=== PATIENT | female | born 1985 | race Caucasian/White ===

== ENCOUNTER 2018-06-13 17:50 | Day surgery (SDC) | payer MEDICARE, MEDICAID ==
--- NOTE | 2018-06-13 19:32 | ULT ---
US Pelvic Transvag W Doppler History: [26 weeks . History of bleeding.] Comparison: None. Findings: Real-time grayscale, color, and spectral analysis of the pelvis was performed transabdomina l and transvaginal approach. There is no intrauterine . The uterus is retroverted. Images thickness is 5 mm. The uterus measures 8.5 x 5.2 x 6 cm without mass. The periuterine vessels are enlarged. Right ovary measures 2.5 x 3.2 x 1.9 cm with adequate vascular flow. Left ovary measures 1.1 x 2.1 x 1.3 cm with adequate vascular flow. Impression: Normal endometrium without intrauterine . Enlarged uterine and adnexal vessels. Both ovaries are normal.
[2018-06-13 19:36] LABS: #Basophils 0.1 thou/uL (0.0-0.2); #Eosinphils 0.1 thou/uL (0.0-0.7); #Lymphocytes 2.8 thou/uL (1.20-3.40); #Monocytes 0.4 thou/uL (0.11-0.59); #Neutrophils 4.4 thou/uL (1.40-6.50); %Basophils 1.4 % (0.0-1.0); %Eosinophils 1.5 % (0.0-10.0); %Lymphocytes 35.7 % (21.0-51.0); %Monocytes 5.5 % (0.0-10.0); Hemoglobin 13.9 g/dL (12.0-16.0); Mean Corpuscular HGB CONC 34.6 g/dL (32.0-36.0); Mean Corpuscular Hemoglobin 31.1 pg (27.0-31.0); Mean Corpuscular Volume 89.9 fL (78.0-98.0); Mean Platelet Volume 8.4 fL (7.4-10.4); Platelet Count 302 thou/uL (130-400); RBC Distribution Width 11.3 % (11.5-14.5); Red Blood Cell (RBC) Count 4.47 mill/uL (4.20-5.40); White Blood Cell (WBC) Count 7.8 thou/uL (4.8-10.8)
--- NOTE | 2018-06-14 05:09 | SS ---
DATE OF ADMISSION: 06/13/2018 DATE OF DISCHARGE: 06/13/2018 REGULAR PHYSICIAN: Adis Ortega MD at [facility]. EVALUATING PHYSICIAN: Filippo Blue MD. CHIEF COMPLAINT: Vaginal bleeding. HISTORY OF PRESENT ILLNESS: Ms. Reveles is a 32-year-old white reportedly G3, P1, AB1 with a reported estimated date of confinement of 09/07/2018, who presents complaining of vaginal bleeding that started this morning. She was brought to [facility] by EMS. She reports that she has had care with Dr. Nick Ortega and was seen approximately a week ago and was told all was well with her . She denies ruptured membranes or uterine contractions. PAST OBSTETRICAL HISTORY: Includes one vaginal delivery at term and one miscarriage requiring D and C. PAST MEDICAL HISTORY: Includes seizure disorder. She states her last seizure was several months ago. PAST SURGICAL HISTORY: Tonsillectomy, D and C, history of tubal ligation, and an unknown kidney surgery. CURRENT MEDICATIONS: 1. vitamins. 2. Iron. 3. Keppra and Tegretol, both the dosages unknown. 4. Vitamin D and calcium. ALLERGIES: GEODON AND BUPAP. SOCIAL HISTORY: She smokes less than a pack a day. She denies drinking or illicit drug use. FAMILY HISTORY: Unremarkable. REVIEW OF SYSTEMS: Denies nausea, vomiting, fever, chills, ruptured membranes. PHYSICAL EXAMINATION: VITAL SIGNS: In triage, vital signs are stable. She is afebrile. GENERAL: She is anxious, but appears to answer questions appropriately. ABDOMEN: Soft and nontender. There is no palpable gravid uterus on physical examination. LABORATORY DATA: Ultrasound at the bedside in Labor and delivery shows no evidence of a uterus. Ultrasound is ordered stat. This shows no evidence of with an 8-week size uterus and a normal endometrium. There appeared to be no adnexal masses. LABORATORY DATA: White count 7.8, hemoglobin and hematocrit 13.9 and 40.2, and a platelet count of 302,000. Serum beta HCG is less than 1.20. ASSESSMENT: No evidence of at this time. PLAN: The patient will be discharged home. I am uncertain as to the discrepancy in this patient's story. She is very upset and states that she will go to [facility] this evening to confer with Dr. Ortega. Her USG and [facility] report are given to her upon her discharge. Job ID: [id number] [facility]
== END 2018-06-13 20:10 | disposition home or self-care (01) ==
LOC: L&D/OP 17:50
PROVIDERS: ATTEND Obstetrics & Gynecology
DX: O99.89 Other specified diseases and conditions complicating pregnancy, childbirth and the puerperium (principal); N89.8 Other specified noninflammatory disorders of vagina; O99.352 Diseases of the nervous system complicating pregnancy, second trimester; G40.909 Epilepsy, unspecified, not intractable, without status epilepticus; F17.210 Nicotine dependence, cigarettes, uncomplicated; Z3A.26 26 weeks gestation of pregnancy; Z79.899 Other long term (current) drug therapy; Z88.8 Allergy status to other drugs, medicaments and biological substances
CPT/HCPCS: 36415; 76856; 84702; 85025; 99283

== ENCOUNTER 2018-06-22 19:16 | Emergency (ER) | payer MEDICARE, MEDICAID ==
[2018-06-22] MEDS ORDERED: Ketorolac Tromethamine 30 MG/ML VIAL ONE (19:52)
--- NOTE | 2018-06-22 20:29 | RAD ---
PORTABLE CHEST: 06/22/18 HISTORY: Left shoulder pain. Lungs are clear. Heart and mediastinum unremarkable. Osseous structures appear intact. IMPRESSION: No acute findings. POS: AGW
--- NOTE | 2018-06-22 20:29 | RAD ---
LEFT SHOULDER: 06/22/18 Three views. HISTORY: Shoulder pain. No evidence of fracture or dislocation. No osseous abnormality seen. IMPRESSION: No acute findings. POS: AGW
== END 2018-06-22 20:41 | disposition home or self-care (01) ==
LOC: ERS 19:16
DX: S40.012A Contusion of left shoulder, initial encounter (principal); G40.909 Epilepsy, unspecified, not intractable, without status epilepticus; F31.9 Bipolar disorder, unspecified; F17.210 Nicotine dependence, cigarettes, uncomplicated; V43.62XA Car passenger injured in collision with other type car in traffic accident, initial encounter
CPT/HCPCS: 71045; 96372; J1885

== ENCOUNTER 2019-07-28 06:24 | Emergency (ER) | payer MEDICARE, OTHER ==
[2019-07-28 06:52] LABS: Bacteria/HPF 1+ HPF (None Seen); Bilirubin Negative (Negative); Blood, Urine Negative (Negative); Clarity Clear (Clear); Glucose, Urine (Dipstick) Normal (Negative); Leukocyte 25 Leu/uL (Negative); Mucous/LPF Rare LPF (<2+); Nitrite 2+ (Negative); Protein, Urine (Dipstick) Negative (Neg-Trace); RBC/HPF 0-3 HPF (0-3); Urobilinogen Normal mg/dL (Less than 2)
[2019-07-28 06:56] LABS: Amphetamine Detected (NotDetected); Barbiturates Screen Not Detected (NotDetected); Benzodiazepine Screen Not Detected (NotDetected); Cocaine Metabolite Screen Not Detected (NotDetected); Medtox Reader # READER 1; Methadone Not Detected (NotDetected); Methamphetamine Detected (NotDetected); Opiate Screen Not Detected (NotDetected); Oxycodone Screen Not Detected (NotDetected); Phencyclidine (PCP) Not Detected (NotDetected); THC/Cannabinoid Screen Not Detected (NotDetected); Tricyclic Screen Not Detected (NotDetected)
[2019-07-28 06:57] LABS: Medtox Control Line Valid? VALID (VALID)
[2019-07-28 07:15] LABS: BHCG - Serum Negative (NEGATIVE); Pregs Control Background? CLEAR/WHITE (CLR/WHITE); Pregs Control Bar Appear? YES (CONTROL BAR)
[2019-07-28 07:27] LABS: Acetaminophen Less than 6.0 mcg/mL (10.0-30.0); Alcohol Less than 10 mg/dL (Less than 10); Salicylate Less than 8.0 mg/dL (15.0-30.0)
[2019-07-28 07:28] LABS: ALT (SGPT) 9 U/L (8-55); AST (SGOT) 16 U/L (5-34); Albumin 4.2 g/dL (3.5-5.0); Alkaline Phosphatase 64 U/L (40-110); Anion Gap 11 mmol/L (10-20); BUN (Urea Nitrogen) 8 mg/dL (7.0-18.7); Bilirubin, Total 0.4 mg/dL (0.2-1.2); Calc. Creatinine Clearance 0 mL/min (70-130); Calcium 8.5 mg/dL (7.8-10.44); Carbon Dioxide 24 mmol/L (22-29); Chloride 104 mmol/L (98-107); Estimated GFR-MDRD 83; Globulin 2.9 g/dL (2.4-3.5); Glucose 84 mg/dL (70-105); Protein, Total 7.1 g/dL (6.0-8.3); Sodium 136 mmol/L (136-145)
[2019-07-28 07:55] LABS: #Basophils 0.1 thou/uL (0.0-0.2); #Lymphocytes 2.3 thou/uL (1.20-3.40); #Monocytes 1.1 thou/uL (0.11-0.59); #Neutrophils 9.1 thou/uL (1.40-6.50); %Basophils 0.4 % (0.0-1.0); %Eosinophils 0.2 % (0.0-10.0); %Lymphocytes 18.5 % (21.0-51.0); %Monocytes 8.7 % (0.0-10.0); %Neutrophils 72.1 % (42.0-75.0); Hemoglobin 13.5 g/dL (12.0-16.0); Mean Corpuscular HGB CONC 34.6 g/dL (32.0-36.0); Mean Corpuscular Hemoglobin 31.8 pg (27.0-31.0); Mean Corpuscular Volume 92.1 fL (78.0-98.0); Mean Platelet Volume 9.1 fL (7.4-10.4); Platelet Count 248 thou/uL (130-400); RBC Distribution Width 11.6 % (11.5-14.5); Red Blood Cell (RBC) Count 4.23 mill/uL (4.20-5.40); White Blood Cell (WBC) Count 12.6 thou/uL (4.8-10.8)
[2019-07-28] MEDS ORDERED: Potassium Chloride 20 MEQ TAB ONE (08:28)
[2019-07-28] MEDS ORDERED: Nitrofurantoin Macrocrystal 50 MG CAP PO SCH (08:45)
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
[2019-07-28] MEDS ORDERED: hydrOXYzine 25 MG TAB ONE (14:33)
[2019-07-28] MEDS ORDERED: Ibuprofen 200 MG TAB ONE (14:33)
[2019-07-28] MEDS ORDERED: Ziprasidone 20 MG VIAL ONE (14:44)
[2019-07-28] MEDS ORDERED: Lorazepam 2 MG/ML VIAL ONE (14:44)
== END 2019-07-28 19:50 ==
LOC: ERS 06:24
DX: T42.4X2A Poisoning by benzodiazepines, intentional self-harm, initial encounter (principal); E87.6 Hypokalemia; F29 Unspecified psychosis not due to a substance or known physiological condition; N39.0 Urinary tract infection, site not specified; G40.909 Epilepsy, unspecified, not intractable, without status epilepticus; F31.9 Bipolar disorder, unspecified; F43.10 Post-traumatic stress disorder, unspecified; F17.210 Nicotine dependence, cigarettes, uncomplicated; Z79.899 Other long term (current) drug therapy
CPT/HCPCS: 36415; 70450; 72125; 80053; 80306; 80307; 81003; 81015; 84443; 84703; 85025; 87077; 87086; 87186; 93005; 96372; J2060; J3486

== ENCOUNTER 2020-04-02 15:35 | Outpatient (CLI) | payer MEDICARE, MEDICAID ==
[2020-04-02 18:56] LABS: BHCG - Serum Negative (NEGATIVE); Pregs Control Background? CLEAR/WHITE (CLR/WHITE); Pregs Control Bar Appear? YES (CONTROL BAR)
[2020-04-03 01:58] LABS: SARS-CoV-2 PCR by NAA Not Detected (NotDetected)
== END 2020-04-02 15:36 | disposition home or self-care (01) ==
LOC: LABBT 15:35
PROVIDERS: ATTEND Student in an Organized Health Care Education/Training Program
DX: Z01.812 Encounter for preprocedural laboratory examination (principal); Z20.822 Contact with and (suspected) exposure to COVID-19; S02.2XXA Fracture of nasal bones, initial encounter for closed fracture; R09.81 Nasal congestion; J34.89 Other specified disorders of nose and nasal sinuses
CPT/HCPCS: 84703; 85014; U0003; U0005; 87635

== ENCOUNTER 2020-04-07 06:17 | Day surgery (SDC) | payer MEDICARE, MEDICAID ==
[2020-04-06 12:07] VITALS: BMI 28.1
[2020-04-07] MEDS ORDERED: AFRIN NASAL MIST 15 ML BOT ONE ×2 (06:40→08:22)
[2020-04-07] MEDS ORDERED: Acetaminophen 500 MG TAB ONE (07:17)
[2020-04-07] MEDS ORDERED: Propofol 1,000 MG/100 ML VIAL IV ONE (07:20)
[2020-04-07] MEDS ORDERED: Midazolam HCl 2 mg/2 ml Vial ONE (07:21)
[2020-04-07] MEDS ORDERED: Methylene Blue 50 MG/10 ML AMPUL ONE (08:22)
[2020-04-07] MEDS ORDERED: Bacitracin Zinc Ointment 30 gm TUBE ONE (08:22)
[2020-04-07] MEDS ORDERED: XYLOCAINE 2%-EPI 1:100,000 20 ML VIAL ONE (08:22)
[2020-04-07] MEDS ORDERED: Fentanyl 250 MCG/5 ML VIAL ONE (08:24)
[2020-04-07] MEDS ORDERED: Morphine 4 MG/ML VIAL ONE (08:24)
[2020-04-07] MEDS ORDERED: PHENYLEPHRINE-NS 100 MCG/ML 10 ML SYRINGE ONE (09:48)
[2020-04-07] MEDS ORDERED: ePHEDrine 50 MG/ML VIAL ONE (09:48)
[2020-04-07] MEDS ORDERED: Ondansetron PF 4 MG/2 ML Vial ONE (09:48)
[2020-04-07] MEDS ORDERED: PROPOFOL 200 MG/20 ML VIAL ONE (09:48)
[2020-04-07] MEDS ORDERED: Dexamethasone 20 MG/5 ML VIAL ONE (09:48)
[2020-04-07] MEDS ORDERED: Lidocaine 1% PF 5 ML VIAL ONE (09:48)
[2020-04-07] MEDS ORDERED: Rocuronium Bromide 10 MG/ML (10ML VIAL) ONE (09:48)
[2020-04-07] MEDS ORDERED: Ketorolac Tromethamine 30 MG/ML VIAL ONE (09:48)
--- NOTE | 2020-04-08 14:54 | OP ---
DATE OF PROCEDURE: 04/07/2020 PREOPERATIVE DIAGNOSES: Caudal septal deflection to the right deviated septum, turbinate hypertrophy. POSTOPERATIVE DIAGNOSIS: Caudal septal deflection to the right deviated septum, turbinate hypertrophy. PROCEDURE PERFORMED: Open septorhinoplasty and submucous reduction of inferior turbinates. PERMIT: Procedures, benefits, and risks including those of bleeding, infection, injury, nasal deformity, allergic reaction, scarring, nasal congestion and difficulty breathing necessitating revision and repair, and alternatives were reviewed with the patient, who expressed understanding of the information. A consent form was signed and witnessed and a paper copy of the consent form is available for review in the paper chart. INDICATIONS: This is a 34-year-old female patient presenting to the clinic with history of a seizure disorder and anterior caudal deflection consistent with repeated nasal trauma in the past and difficulty breathing, desiring surgical correction in order to alleviate congestion, difficulty breathing and an occasional in the nose. ASSISTANTS: None. FINDINGS: Significant anterior caudal septal deflection and posterior left and posterior superior right septal deviation and turbinate hypertrophy. DESCRIPTION OF PROCEDURE: The patient was identified in the preoperative area and brought back to the operating room. Anesthesia was placed and all appropriate lines and leads were placed. A complete time-out was performed. Anesthesia proceeded with endotracheal intubation of the patient and eye protection was placed and then the site was prepped and draped in a sterile manner. 1% lidocaine with 1:100,000 epinephrine was used to infiltrate the nasal septum, the columella, the lateral crura, the lower lateral cartilage and the dorsal aspect of the nose. The nasal columella was also injected with 1% lidocaine with 1:100,000 epinephrine. The endoscope was used to evaluate the nasal cavity and significant caudal septal deflection to the right was seen as well as posterior right and left septal deviation and turbinate hypertrophy. Alanis speculum was used to visualize the nasal cavity anteriorly and at this point, a 15 blade was used to make a hemitransfixion incision on the left. The incision was carried down to the septal cartilage. A [place] elevator and a [place] were used to identify the submucoperichondrial plane, which was then elevated and a suction elevator was used to fully elevate the mucoperichondrial flap. A 0-degree rigid scope and a suction [place] was used to continually elevate the flap posteriorly and about a 2-cm posterior incision was made through the cartilage on the left side with help of a 15 blade scalpel and a [place] used to identify the submucosal plane and the contralateral side was also elevated with a suction [place] and a 0-degree rigid endoscope. At this point, significant deviation was seen after the elevation of mucoperichondrial flap and an open approach was made. An inverted-V incision was outlined at the waist of the columella at the narrowest portion. An 11 blade was then used to incise the skin and subcutaneous tissue with care not to score the medial footplate of the lower lateral cartilages or the medial crura. The incision was extended laterally into the marginal incisions bilaterally. The soft tissue envelope was then elevated off the cartilage utilizing a combination of sharp dissection with curved Iris scissors and [place] scissors and blunt dissection as well as using Q-Tips for sweeping motions to expose the smooth cartilaginous surfaces. Dissection continued over the domes and superiorly over the nasal dorsum exposing the upper lateral cartilages and the entire nasal bone superiorly. Elevation at this point revealed significant deviated septum that was a Z-shaped deviation with a complete fracture of the cartilage, which was mildly thickened and dense scar tissue in the fractured area. At this point, the lower lateral cartilages and interdomal ligament was marked for future reapproximation, and the interdomal ligament was divided and the anterior septal angle was identified with the use of Q-Tips, blunt dissection and sharp dissection. The complete caudal septum was exposed and significant scar tissue was carefully elevated off the septum and a mucoperichondrial flap was continually elevated posteriorly. At this point, a significant deviation to the right was seen inferiorly and superiorly deviation to the left. A small cartilaginous section of the anterior septum was shaved and the entire septum was straightened with Brown-Adson's and seen that the cartilaginous portions could be perfectly straight in the midline. At this point, attention was turned to the hemitransfixion incision and the cartilaginous incision and a swivel knife was used to harvest a straight and strong section quadrangular cartilage from the septum and removed and placed in saline. After this was rinsed in saline, the cartilage, a small roughly 1.5 cm section was shaped to the appropriate thickness and placed next to the anterior caudal deviation of the septum and to be supportive and 5-0 PDS suture was used to secure the cartilage to the anterior septum with 3 sutures on anterior superior and anterior inferior and a central incision more posteriorly was placed. At this point, the significant deviation and Z-shaped deviation was found to be corrected and the septum was found to be strong in nature and looking more posterior, there was a small bulbous nature of the cartilage of the septum, which was shaved. After this was completed, the anterior caudal deviation and obstruction was found to be alleviated. After this was performed, there was some mild deviation of the anterior tip structures and a small deviated portion of cartilage was shaved. However, the lower lateral cartilage, the medial crura, and the cartilage of the dome were left intact and 5-0 PDS suture was used to reapproximate domes at the level of the interdomal ligament that was previously marked. After this was completed, sutures were placed in the medial crura as well as the lower lateral cartilages to correct the deviation and to anchor it to the repaired anterior septum. After this was performed, the soft tissue envelope was replaced over the cartilage and found that the deviation was corrected and attention was turned to the hemitransfixion on the left and the posterior deviation of the septum were removed with double action scissors as well as the [place]. At this point, 5-0 chromic sutures were used to reapproximate the inverted-V and columellar incisions as well as the marginal incisions and after this was reapproximated, a 4-0 chromic suture on a Jose Guadalupe needle was used to do a quilting stitch on the septum in order to reapproximate the mucoperichondrial flaps. At this point, attention was turned to the submucosal reduction of inferior turbinates. A small anterior inferior incision was made bilaterally and the turbinate blade of the microdebrider was used to elevate the mucosal plane over the erectile tissue and then from anterior to posterior and then inferior to superior and then the turbinate blade was used to remove the erectile tissue on the left side and then the same procedure was performed on the right side, where the elevation of the mucosa was performed in an anterior to posterior fashion and then inferior to superior and then significant erectile tissue was removed with the turbinate blade. There was no bleeding seen. However, the turbinates were significantly reduced and the nasal obstruction was alleviated. Attention was turned to the septum and the rhinoplasty and palpation of the dome, the nasal dorsum and anterior septum, palpation confirmed that this area was strengthened. Significant strengthening was an effort of the surgery in order to alleviate the deviation and then strengthen those areas that has been leaking from previous fractures. After this was performed, [place] splints were placed bilaterally and anchored with anterior 2-0 silk suture. There was no bleeding seen and the patient was turned over to Anesthesia for emergence. There were no complications. Job ID: [id number]
== END 2020-04-07 13:40 | disposition home or self-care (01) ==
LOC: SDC 06:17
PROVIDERS: ATTEND Student in an Organized Health Care Education/Training Program
PROC: 09SM0ZZ Reposition Nasal Septum, Open Approach (ICD-10-PCS; principal; 2020-04-07)
PROC: 09BM0ZZ Excision of Nasal Septum, Open Approach (ICD-10-PCS; 2020-04-07)
PROC: 09TL0ZZ Resection of Nasal Turbinate, Open Approach (ICD-10-PCS; 2020-04-07)
DX: J34.2 Deviated nasal septum (principal); J34.3 Hypertrophy of nasal turbinates; J34.89 Other specified disorders of nose and nasal sinuses; S02.2XXA Fracture of nasal bones, initial encounter for closed fracture; H71.91 Unspecified cholesteatoma, right ear; H90.11 Conductive hearing loss, unilateral, right ear, with unrestricted hearing on the contralateral side; G40.909 Epilepsy, unspecified, not intractable, without status epilepticus; G43.909 Migraine, unspecified, not intractable, without status migrainosus; F17.210 Nicotine dependence, cigarettes, uncomplicated; F12.11 Cannabis abuse, in remission; F14.11 Cocaine abuse, in remission; F31.9 Bipolar disorder, unspecified; F43.10 Post-traumatic stress disorder, unspecified; Z62.810 Personal history of physical and sexual abuse in childhood; Z79.899 Other long term (current) drug therapy; Z88.8 Allergy status to other drugs, medicaments and biological substances
CPT/HCPCS: J0690; J1100; J1885; J2250; J2270; J2405; J2704; J3010; J3490; Q9968

== ENCOUNTER 2020-07-30 13:14 | Emergency (ER) | payer MEDICARE, MEDICAID ==
[2020-07-30] MEDS ORDERED: Ondansetron ODT 4 MG TAB ONE (14:49)
[2020-07-30] MEDS ORDERED: Morphine 4 MG/ML VIAL ONE (14:49)
[2020-07-30] MEDS ORDERED: Lidocaine 1% (PF) 30 ML VIAL ONE (14:49)
[2020-07-30] MEDS ORDERED: Lidocaine 4% Cream 5 GM TUBE w/ Tegaderm ONE (15:08)
[2020-07-30] MEDS ORDERED: Lidocaine 1% w/Epinephrine 1:100K 20 ML VIAL ONE (15:10)
[2020-07-30] MEDS ORDERED: Boostrix 0.5 ML (Tdap) VIAL ONE (15:11)
== END 2020-07-30 17:10 | disposition home or self-care (01) ==
LOC: ERS 13:14
DX: L02.411 Cutaneous abscess of right axilla (principal); G40.909 Epilepsy, unspecified, not intractable, without status epilepticus; F17.210 Nicotine dependence, cigarettes, uncomplicated; Z79.899 Other long term (current) drug therapy
CPT/HCPCS: 10060; 90471; 90715; 96372; J2001; J2270; Q0162

== ENCOUNTER 2020-10-17 13:16 | Emergency (ER) | payer MEDICARE, MEDICAID ==
[~2020-10-17 13:16] MED LIST: Iopamidol-370 76% 500 ML 1 ML ONE
[2020-10-17 13:57] LABS: #Basophils 0.1 thou/uL (0.0-0.2); #Lymphocytes 2.7 thou/uL (1.20-3.40); #Monocytes 0.7 thou/uL (0.11-0.59); #Neutrophils 7.4 thou/uL (1.40-6.50); %Basophils 0.7 % (0.0-1.0); %Eosinophils 0.4 % (0.0-10.0); %Lymphocytes 24.4 % (21.0-51.0); %Monocytes 6.6 % (0.0-10.0); %Neutrophils 67.9 % (42.0-75.0); Hemoglobin 14.4 g/dL (12.0-16.0); Mean Corpuscular HGB CONC 34.6 g/dL (32.0-36.0); Mean Corpuscular Hemoglobin 30.9 pg (27.0-31.0); Mean Corpuscular Volume 89.3 fL (78.0-98.0); Mean Platelet Volume 8.9 fL (7.4-10.4); Platelet Count 292 thou/uL (130-400); RBC Distribution Width 11.5 % (11.5-14.5); Red Blood Cell (RBC) Count 4.65 mill/uL (4.20-5.40); White Blood Cell (WBC) Count 10.9 thou/uL (4.8-10.8)
[2020-10-17 14:07] LABS: BHCG - Serum Negative (NEGATIVE); Pregs Control Background? CLEAR/WHITE (CLR/WHITE); Pregs Control Bar Appear? YES (CONTROL BAR)
[2020-10-17 14:15] LABS: ALT (SGPT) 11 U/L (8-55); AST (SGOT) 17 U/L (5-34); Albumin 4.4 g/dL (3.5-5.0); Alkaline Phosphatase 79 U/L (40-110); Anion Gap 13 mmol/L (10-20); BUN (Urea Nitrogen) 11 mg/dL (7.0-18.7); Bilirubin, Total 0.7 mg/dL (0.2-1.2); Calc. Creatinine Clearance 0 mL/min (70-130); Calcium 9.3 mg/dL (7.8-10.44); Carbon Dioxide 21 mmol/L (22-29); Chloride 106 mmol/L (98-107); Glucose 115 mg/dL (70-105); Potassium 4.1 mmol/L (3.5-5.1); Protein, Total 8.4 g/dL (6.0-8.3); Sodium 136 mmol/L (136-145)
[2020-10-18 00:25] LABS: SARS-CoV-2 PCR by NAA Not Detected (NotDetected)
== END 2020-10-17 16:20 | disposition home or self-care (01) ==
LOC: ERS 13:16
DX: R06.02 Shortness of breath (principal); R05 Cough; R79.1 Abnormal coagulation profile; R00.0 Tachycardia, unspecified; F17.210 Nicotine dependence, cigarettes, uncomplicated; G40.909 Epilepsy, unspecified, not intractable, without status epilepticus; Z20.822 Contact with and (suspected) exposure to COVID-19; Z79.899 Other long term (current) drug therapy
CPT/HCPCS: 71045; 71275; 80053; 84484; 84703; 85025; 85379; U0003; U0005; Q9967

== ENCOUNTER 2021-03-06 17:54 | Emergency (ER) | payer OTHER, MEDICARE, MEDICAID | END 2021-03-06 19:01 | disposition left against medical advice (07) | LOC: ERS 17:54 | DX: S09.90XA Unspecified injury of head, initial encounter (principal); G40.909 Epilepsy, unspecified, not intractable, without status epilepticus; M54.2 Cervicalgia; W01.0XXA Fall on same level from slipping, tripping and stumbling without subsequent striking against object, initial encounter; F17.210 Nicotine dependence, cigarettes, uncomplicated | CPT/HCPCS: 36416; 93005; 99284 ==

== ENCOUNTER 2021-05-27 10:48 | Inpatient (IN) | payer MEDICARE, MEDICAID ==
[2021-05-27] MEDS ORDERED: Propofol 1,000 MG/100 ML VIAL IV ONE (10:52)
[2021-05-27] MEDS ORDERED: ceFAZolin (BATCH) 2 GM/100 ML BAG ONE (10:56)
[2021-05-27] MEDS ORDERED: Boostrix 0.5 ML (Tdap) VIAL ONE (10:56)
[2021-05-27 11:00] LABS: #Basophils 0.1 thou/uL (0.0-0.2); #Eosinphils 0.1 thou/uL (0.0-0.7); #Lymphocytes 3.5 thou/uL (1.20-3.40); #Monocytes 0.7 thou/uL (0.11-0.59); #Neutrophils 6.6 thou/uL (1.40-6.50); %Basophils 0.7 % (0.0-1.0); %Eosinophils 0.8 % (0.0-10.0); %Lymphocytes 31.9 % (21.0-51.0); %Monocytes 6.4 % (0.0-10.0); %Neutrophils 60.1 % (42.0-75.0); Hemoglobin 13.4 g/dL (12.0-16.0); Mean Corpuscular HGB CONC 33.9 g/dL (32.0-36.0); Mean Corpuscular Hemoglobin 31.5 pg (27.0-31.0); Mean Corpuscular Volume 92.8 fL (78.0-98.0); Mean Platelet Volume 7.5 fL (7.4-10.4); Platelet Count 307 thou/uL (130-400); Red Blood Cell (RBC) Count 4.26 mill/uL (4.20-5.40)
[2021-05-27] MEDS ORDERED: Vecuronium 10 MG VIAL ONE (11:03)
[2021-05-27] MEDS ORDERED: Fentanyl 100 MCG/2 ML VIAL ONE (11:04)
[2021-05-27 11:09] LABS: INR-International Normal Ratio 1.2; PTT 26.8 sec (22.9-36.1); Prothrombin Time 14.9 sec (12.0-14.7)
[2021-05-27 11:17] LABS: ALT (SGPT) 9 U/L (8-55); AST (SGOT) 10 U/L (5-34); Albumin 4.3 g/dL (3.5-5.0); Alcohol Less than 10 mg/dL (Less than 10); Alkaline Phosphatase 74 U/L (40-110); Anion Gap 13 mmol/L (10-20); BUN (Urea Nitrogen) 11 mg/dL (7.0-18.7); Bilirubin, Total 0.5 mg/dL (0.2-1.2); Calc. Creatinine Clearance 0 mL/min (70-130); Calcium 8.7 mg/dL (7.8-10.44); Carbon Dioxide 23 mmol/L (22-29); Chloride 105 mmol/L (98-107); Glucose 113 mg/dL (70-105); Potassium 3.3 mmol/L (3.5-5.1); Protein, Total 7.3 g/dL (6.0-8.3); Sodium 138 mmol/L (136-145)
[2021-05-27] MEDS ORDERED: Dextrose 5% in Water 1,000 ML IV PRN (11:24)
[2021-05-27] MEDS ORDERED: Dextrose 50% Abboject 50 ML SYRINGE SLOW IVP PRN (11:24)
[2021-05-27] MEDS ORDERED: Ondansetron PF 4 MG/2 ML Vial IVP PRN (11:24)
[2021-05-27] MEDS ORDERED: hydrALAZINE 20 MG/ML VIAL SLOW IVP PRN (11:24)
[2021-05-27] MEDS ORDERED: Ventilator Sedation Protocol 1 EACH FS SCH (11:30)
[2021-05-27 11:38] LABS: Actual Bicarbonate (HCO3a) 18.8 mEq/L (22-28); Analyzer IN Cardio ER; Base Excess (BEa) -3.4 mEq/L (-2.0 to +3.0); Calcium, Ionized (arterial) 1.01 mmol/L (1.12-1.30); Carboxyhemoglobin (COHb) 0.3 gm% (0.0-3.0); Hemoglobin (Hb) 10.7 g/dL (12.0-16.0); O2 Tension (PaO2), arterial 377.4 mmHg (80.0-100.0); Potassium - ABG Lab 3.36 mmol/L (3.70-5.30); pH, Arterial 7.49 (7.35-7.45)
[2021-05-27 11:41] LABS: ALV-art Gradient -52.525 mmHg (0-20); CO2 Tension 25.3 mmHg (35.0-45.0); Puncture Site RRA
[2021-05-27] MEDS ORDERED: DISCONTINUE PREVIOUS NARCOTIC PAIN MEDICATIONS AND BENZODIAZEPINES FS SCH (11:45)
[2021-05-27] MEDS ORDERED: Propofol BOLUS 1,000 MG/100 ML VIAL IV PRN (11:45)
[2021-05-27] MEDS ORDERED: Morphine 2 MG/ML VIAL SLOW IVP PRN (11:45)
[2021-05-27] MEDS ORDERED: Fentanyl BOLUS 250 ML IVPB PRN (11:45)
[2021-05-27] MEDS ORDERED: Lorazepam 2 MG/ML VIAL SLOW IVP PRN (11:45)
[2021-05-27 11:47] LABS: Bilirubin Negative (Negative); Blood, Urine Negative (Negative); Clarity Clear (Clear); Glucose, Urine (Dipstick) Normal (Negative); Ketone, Urine Negative (Negative); Leukocyte Negative Leu/uL (Negative); Nitrite Negative (Negative); Protein, Urine (Dipstick) Negative (Neg-Trace); Specific Gravity, Urine 1.017 (1.002-1.036); Urobilinogen Normal mg/dL (Less than 2)
[2021-05-27 11:48] LABS: Magnesium 2.2 mg/dL (1.6-2.6); Phosphorus 2.5 mg/dL (2.3-4.7)
[2021-05-27 11:58] LABS: Amphetamine Not Detected (NotDetected); Barbiturates Screen Not Detected (NotDetected); Benzodiazepine Screen Detected (NotDetected); Cocaine Metabolite Screen Not Detected (NotDetected); Methadone Not Detected (NotDetected); Methamphetamine Not Detected (NotDetected); Opiate Screen Not Detected (NotDetected); Oxycodone Screen Not Detected (NotDetected); Phencyclidine (PCP) Not Detected (NotDetected); THC/Cannabinoid Screen Not Detected (NotDetected); Tricyclic Screen Not Detected (NotDetected)
[2021-05-27] MEDS ORDERED: Calcium Chloride 13.6 MEQ in Sodium Chloride 0.9% 100 ML IVPB SCH (12:00)
[2021-05-27] MEDS: Sodium Chloride 0.9% 1,000 ML IV SCH ×2 (12:35→20:58)
[2021-05-27] MEDS: fentaNYL Citrate-0.9 % NaCl/PF 100 ML IV SCH (12:41)
[2021-05-27] MEDS ORDERED: levETIRAcetam in NS 500 MG in Premix Bag 1 BAG IVPB SCH (12:45)
[2021-05-27] MEDS ORDERED: Potassium Phosphate 30 MMOL in Sodium Chloride 0.9% 250 ML 250 ML IVPB SCH (13:00)
[2021-05-27 13:48] LABS: Lactic Acid 1.5 mmol/L (0.5-2.2)
[2021-05-27] MEDS: Clindamycin/D5W 900 MG in Premix Bag 1 BAG IVPB SCH ×2 (14:06→22:58)
[2021-05-27] MEDS ORDERED: Iopamidol-370 76% 500 ML 1 ML ONE (14:39)
[2021-05-27] MEDS: Propofol 1,000 MG/100 ML VIAL IV PRN ×2 (17:41→22:58)
[2021-05-27] MEDS: levETIRAcetam in NS 500 MG in Premix Bag 1 BAG IVPB SCH (21:00)
[2021-05-27] MEDS: Famotidine/PF 20 mg/2ml Vial SLOW IVP SCH (21:01)
[2021-05-28 04:10] LABS: SARS-CoV-2 NAA Rapid Test Not Detected (NotDetected)
[2021-05-28 04:33] LABS: #Eosinphils 0.1 thou/uL (0.0-0.7); #Lymphocytes 2.4 thou/uL (1.20-3.40); #Monocytes 0.5 thou/uL (0.11-0.59); %Basophils 0.4 % (0.0-1.0); %Eosinophils 1.5 % (0.0-10.0); %Lymphocytes 29.5 % (21.0-51.0); %Monocytes 6.2 % (0.0-10.0); %Neutrophils 62.5 % (42.0-75.0); Mean Corpuscular HGB CONC 34.1 g/dL (32.0-36.0); Mean Corpuscular Hemoglobin 32.4 pg (27.0-31.0); Mean Corpuscular Volume 94.9 fL (78.0-98.0); Mean Platelet Volume 8.1 fL (7.4-10.4); Platelet Count 202 thou/uL (130-400); RBC Distribution Width 11.9 % (11.5-14.5); Red Blood Cell (RBC) Count 3.07 mill/uL (4.20-5.40)
[2021-05-28] MEDS: Propofol 1,000 MG/100 ML VIAL IV PRN (04:35)
[2021-05-28 04:47] LABS: Anion Gap 9 mmol/L (10-20); BUN (Urea Nitrogen) 6 mg/dL (7.0-18.7); Calc. Creatinine Clearance 141 mL/min (70-130); Calcium 7.6 mg/dL (7.8-10.44); Carbon Dioxide 25 mmol/L (22-29); Chloride 106 mmol/L (98-107); Glucose 72 mg/dL (70-105); Magnesium 1.9 mg/dL (1.6-2.6); Phosphorus 3.9 mg/dL (2.3-4.7); Potassium 3.4 mmol/L (3.5-5.1); Sodium 137 mmol/L (136-145)
[2021-05-28] MEDS: fentaNYL Citrate-0.9 % NaCl/PF 100 ML IV SCH (05:18)
[2021-05-28] MEDS: Sodium Chloride 0.9% 1,000 ML IV SCH ×3 (05:55→20:29)
[2021-05-28] MEDS: Clindamycin/D5W 900 MG in Premix Bag 1 BAG IVPB SCH ×3 (05:56→22:02)
[2021-05-28] MEDS ORDERED: Vecuronium 10 MG VIAL ONE (07:08)
[2021-05-28] MEDS ORDERED: Xylocaine 1% w/ Epi 1:100K 10 ML VIAL ONE (07:09)
[2021-05-28] MEDS ORDERED: Midazolam HCl 2 mg/2 ml Vial ONE (07:09)
[2021-05-28] MEDS ORDERED: Midazolam HCl 2 mg/2 ml Vial IVP PRN (07:11)
[2021-05-28] MEDS ORDERED: Fentanyl 100 MCG/2 ML VIAL SLOW IVP PRN (07:12)
[2021-05-28] MEDS ORDERED: Vecuronium 10 MG VIAL IV SCH ×2 (07:15)
[2021-05-28] MEDS ORDERED: Lidocaine 1%/Epinephrine 1:100K 10 ML VIAL IJ SCH (07:15)
[2021-05-28] MEDS ORDERED: Potassium Chloride 40 MEQ in Premix Bag 1 BAG IVPB SCH (07:30)
[2021-05-28 07:53] LABS: Actual Bicarbonate (HCO3a) 23.9 mEq/L (22-28); Base Excess (BEa) -0.1 mEq/L (-2.0 to +3.0); CO2 Tension 36.8 mmHg (35.0-45.0); Calcium, Ionized (arterial) 1.05 mmol/L (1.12-1.30); Carboxyhemoglobin (COHb) 0.3 gm% (0.0-3.0); Hemoglobin (Hb) 10.3 g/dL (12.0-16.0); O2 Tension (PaO2), arterial 112.1 mmHg (80.0-100.0); Potassium - ABG Lab 3.15 mmol/L (3.70-5.30); pH, Arterial 7.43 (7.35-7.45)
[2021-05-28 08:06] LABS: Puncture Site RRA
[2021-05-28] MEDS: levETIRAcetam in NS 500 MG in Premix Bag 1 BAG IVPB SCH ×2 (08:41→21:55)
[2021-05-28] MEDS: Famotidine/PF 20 mg/2ml Vial SLOW IVP SCH ×2 (08:41→21:57)
[2021-05-28] MEDS ORDERED: Calcium Chloride 13.6 MEQ in Sodium Chloride 0.9% 100 ML IVPB SCH (08:45)
[2021-05-28] MEDS ORDERED: Sodium Chloride 0.9% 500 ML IV SCH (09:15)
[2021-05-28] MEDS ORDERED: Chlorhexidine Gluconate 15 ML UDCUP SSP ONE ×2 (12:46→15:23)
[2021-05-28] MEDS ORDERED: Lidocaine 1% w/Epinephrine 1:100K 20 ML VIAL ONE (12:46)
[2021-05-28] MEDS ORDERED: Hydrocortisone 1% Cream 30 GM TUBE ONE (12:46)
[2021-05-28] MEDS ORDERED: Fentanyl 250 MCG/5 ML VIAL ONE (13:28)
[2021-05-28] MEDS ORDERED: Midazolam HCl 5 mg/5 ml Vial ONE (13:36)
[2021-05-28] MEDS ORDERED: levETIRAcetam in NS 500 MG in Premix Bag 1 BAG IVPB SCH (13:45)
[2021-05-28] MEDS ORDERED: Rocuronium Bromide 10 MG/ML (10ML VIAL) ONE (14:28)
[2021-05-28] MEDS ORDERED: PHENYLEPHRINE-NS 100 MCG/ML 10 ML SYRINGE ONE ×2 (14:28→16:41)
[2021-05-28] MEDS ORDERED: PROPOFOL 200 MG/20 ML VIAL ONE (14:28)
[2021-05-28] MEDS ORDERED: Rocuronium Bromide 50 MG/5 ML VIAL ONE (16:41)
[2021-05-29] MEDS ORDERED: Sodium Chloride 0.9% 500 ML IVPB SCH (03:00)
[2021-05-29] MEDS: Acetaminophen 650 MG/20.3 ML UDCUP PER TUBE SCH ×6 (03:41→20:48)
[2021-05-29 04:39] LABS: #Eosinphils 0.1 thou/uL (0.0-0.7); #Lymphocytes 1.4 thou/uL (1.20-3.40); #Monocytes 0.5 thou/uL (0.11-0.59); #Neutrophils 6.2 thou/uL (1.40-6.50); %Basophils 0.1 % (0.0-1.0); %Eosinophils 1.5 % (0.0-10.0); %Lymphocytes 16.6 % (21.0-51.0); %Monocytes 6.5 % (0.0-10.0); %Neutrophils 75.2 % (42.0-75.0); Hemoglobin 8.5 g/dL (12.0-16.0); Mean Corpuscular HGB CONC 33.2 g/dL (32.0-36.0); Mean Corpuscular Hemoglobin 31.6 pg (27.0-31.0); Mean Corpuscular Volume 95.2 fL (78.0-98.0); Mean Platelet Volume 8.4 fL (7.4-10.4); Platelet Count 155 thou/uL (130-400); RBC Distribution Width 11.6 % (11.5-14.5); White Blood Cell (WBC) Count 8.2 thou/uL (4.8-10.8)
[2021-05-29 05:14] LABS: Anion Gap 9 mmol/L (10-20); BUN (Urea Nitrogen) Less than 4 mg/dL (7.0-18.7); Calc. Creatinine Clearance 135 mL/min (70-130); Calcium 7.8 mg/dL (7.8-10.44); Carbon Dioxide 25 mmol/L (22-29); Chloride 107 mmol/L (98-107); Glucose 100 mg/dL (70-105); Magnesium 1.7 mg/dL (1.6-2.6); Phosphorus 3.1 mg/dL (2.3-4.7); Potassium 3.9 mmol/L (3.5-5.1); Sodium 137 mmol/L (136-145)
[2021-05-29] MEDS: Sodium Chloride 0.9% 1,000 ML IV SCH ×2 (06:07→18:11)
[2021-05-29] MEDS: Clindamycin/D5W 900 MG in Premix Bag 1 BAG IVPB SCH ×3 (06:08→22:15)
[2021-05-29] MEDS ORDERED: Magnesium 2 GM/50 ML(in water) 2 GM in Premix Bag 1 BAG IVPB SCH (08:00)
[2021-05-29] MEDS ORDERED: Sodium Phosphate 15 MMOL in Sodium Chloride 0.9% 250 ML 250 ML IVPB SCH (08:15)
[2021-05-29] MEDS: levETIRAcetam in NS 500 MG in Premix Bag 1 BAG IVPB SCH (09:34)
[2021-05-29] MEDS: Famotidine/PF 20 mg/2ml Vial SLOW IVP SCH ×2 (09:37→20:49)
[2021-05-29] MEDS: Chlorhexidine Gluconate 15 ML UDCUP SSP SCH ×2 (09:37→20:49)
[2021-05-29] MEDS: Bacitracin 1 PK TOP SCH ×2 (09:39→20:48)
[2021-05-29] MEDS: Dexamethasone 4 mg/ml Vial SLOW IVP SCH ×2 (10:33→17:39)
[2021-05-29] MEDS: Enoxaparin Sodium 40 MG/0.4 ML SYRINGE SC SCH (10:33)
[2021-05-29] MEDS: Acetaminophen/Codeine 30-300mg Tablet PO PRN (18:14)
[2021-05-29] MEDS: OXcarbazepine 300 MG TAB PO SCH (20:48)
[2021-05-29] MEDS: levETIRAcetam 500 MG TAB PO SCH (20:49)
[2021-05-29] MEDS: carBAMazepine 200 MG TAB PO SCH (20:49)
[2021-05-29] MEDS: Melatonin 3 MG TAB PO PRN (20:49)
[2021-05-30] MEDS: Dexamethasone 4 mg/ml Vial SLOW IVP SCH ×2 (02:08→15:40)
[2021-05-30] MEDS: Acetaminophen 650 MG/20.3 ML UDCUP PER TUBE SCH ×4 (02:08→20:57)
[2021-05-30] MEDS: Insulin Regular 300 UNITS/3 ML VIAL SC PRN ×3 (04:17→16:51)
[2021-05-30 04:42] LABS: #Lymphocytes 0.5 thou/uL (1.20-3.40); #Monocytes 0.3 thou/uL (0.11-0.59); %Eosinophils 0.1 % (0.0-10.0); %Lymphocytes 4.7 % (21.0-51.0); %Monocytes 2.3 % (0.0-10.0); %Neutrophils 92.9 % (42.0-75.0); Hemoglobin 9.8 g/dL (12.0-16.0); Mean Corpuscular Hemoglobin 32.3 pg (27.0-31.0); Mean Corpuscular Volume 95.1 fL (78.0-98.0); Mean Platelet Volume 8.6 fL (7.4-10.4); Platelet Count 192 thou/uL (130-400); RBC Distribution Width 11.6 % (11.5-14.5); Red Blood Cell (RBC) Count 3.03 mill/uL (4.20-5.40); White Blood Cell (WBC) Count 10.8 thou/uL (4.8-10.8)
[2021-05-30 05:04] LABS: Anion Gap 10 mmol/L (10-20); BUN (Urea Nitrogen) 10 mg/dL (7.0-18.7); Calc. Creatinine Clearance 138 mL/min (70-130); Calcium 8.2 mg/dL (7.8-10.44); Carbon Dioxide 26 mmol/L (22-29); Chloride 106 mmol/L (98-107); Glucose 236 mg/dL (70-105); Magnesium 2.6 mg/dL (1.6-2.6); Phosphorus 3.4 mg/dL (2.3-4.7); Sodium 138 mmol/L (136-145)
[2021-05-30] MEDS: Clindamycin/D5W 900 MG in Premix Bag 1 BAG IVPB SCH ×3 (05:37→21:24)
[2021-05-30] MEDS ORDERED: PHOS-NAK 1 PKT PACK PO SCH (07:45)
[2021-05-30] MEDS: Bacitracin 1 PK TOP SCH ×2 (09:26→20:58)
[2021-05-30] MEDS: Chlorhexidine Gluconate 15 ML UDCUP SSP SCH ×2 (09:26→20:58)
[2021-05-30] MEDS: Famotidine/PF 20 mg/2ml Vial SLOW IVP SCH ×2 (09:26→20:59)
[2021-05-30] MEDS: carBAMazepine 200 MG TAB PO SCH ×2 (09:27→20:58)
[2021-05-30] MEDS: Polyethylene Glycol 3350 17 GM Packet PO SCH (09:27)
[2021-05-30] MEDS: Enoxaparin Sodium 40 MG/0.4 ML SYRINGE SC SCH (09:27)
[2021-05-30] MEDS: clonazePAM 1 MG TAB PO SCH ×2 (09:28→20:59)
[2021-05-30] MEDS: Morphine 4 MG/ML VIAL SLOW IVP PRN (09:28)
[2021-05-30] MEDS: Senokot S 8.6-50 MG TAB PO SCH ×2 (09:28→21:00)
[2021-05-30] MEDS: levETIRAcetam 500 MG TAB PO SCH ×2 (09:28→20:59)
[2021-05-30] MEDS: OXcarbazepine 300 MG TAB PO SCH (21:00)
[2021-05-30] MEDS: Melatonin 3 MG TAB PO PRN (21:00)
[2021-05-30] MEDS ORDERED: Haloperidol Lactate 5 MG/ML VIAL ONE (21:50)
[2021-05-30] MEDS ORDERED: Lorazepam 2 MG/ML VIAL ONE (22:07)
[2021-05-31] MEDS: Acetaminophen 650 MG/20.3 ML UDCUP PER TUBE SCH ×4 (02:49→20:45)
[2021-05-31] MEDS: Clindamycin/D5W 900 MG in Premix Bag 1 BAG IVPB SCH ×3 (05:24→22:30)
[2021-05-31 05:55] LABS: #Eosinphils 0.1 thou/uL (0.0-0.7); #Lymphocytes 2.5 thou/uL (1.20-3.40); %Basophils 0.2 % (0.0-1.0); %Eosinophils 0.6 % (0.0-10.0); %Lymphocytes 19.6 % (21.0-51.0); %Monocytes 7.7 % (0.0-10.0); %Neutrophils 71.9 % (42.0-75.0); Hemoglobin 9.5 g/dL (12.0-16.0); Mean Corpuscular Hemoglobin 32.4 pg (27.0-31.0); Mean Corpuscular Volume 95.2 fL (78.0-98.0); Mean Platelet Volume 8.3 fL (7.4-10.4); Platelet Count 284 thou/uL (130-400); RBC Distribution Width 11.9 % (11.5-14.5); Red Blood Cell (RBC) Count 2.94 mill/uL (4.20-5.40); White Blood Cell (WBC) Count 12.5 thou/uL (4.8-10.8)
[2021-05-31 06:15] LABS: Anion Gap 12 mmol/L (10-20); BUN (Urea Nitrogen) 16 mg/dL (7.0-18.7); Calc. Creatinine Clearance 125 mL/min (70-130); Calcium 8.5 mg/dL (7.8-10.44); Carbon Dioxide 26 mmol/L (22-29); Chloride 107 mmol/L (98-107); Glucose 107 mg/dL (70-105); Magnesium 2.5 mg/dL (1.6-2.6); Phosphorus 3.5 mg/dL (2.3-4.7); Potassium 3.3 mmol/L (3.5-5.1); Sodium 142 mmol/L (136-145)
[2021-05-31] MEDS ORDERED: Potassium Chloride 20 MEQ TAB PO SCH (09:30)
[2021-05-31] MEDS: Chlorhexidine Gluconate 15 ML UDCUP SSP SCH ×2 (10:30→20:45)
[2021-05-31] MEDS: Acetaminophen/Codeine 30-300mg Tablet PO PRN (10:30)
[2021-05-31] MEDS: Bacitracin 1 PK TOP SCH ×2 (10:30→20:45)
[2021-05-31] MEDS: Enoxaparin Sodium 40 MG/0.4 ML SYRINGE SC SCH (10:32)
[2021-05-31] MEDS: levETIRAcetam 500 MG TAB PO SCH ×2 (10:32→20:45)
[2021-05-31] MEDS: clonazePAM 1 MG TAB PO SCH ×2 (10:32→20:45)
[2021-05-31] MEDS: Famotidine/PF 20 mg/2ml Vial SLOW IVP SCH ×2 (10:32→20:45)
[2021-05-31] MEDS: carBAMazepine 200 MG TAB PO SCH ×2 (10:35→20:45)
[2021-05-31] MEDS: Polyethylene Glycol 3350 17 GM Packet PO SCH (10:35)
[2021-05-31] MEDS: Morphine 4 MG/ML VIAL SLOW IVP PRN ×3 (14:35→21:03)
[2021-05-31] MEDS: Senokot S 8.6-50 MG TAB PO SCH ×2 (14:37→20:45)
[2021-05-31] MEDS ORDERED: Morphine 4 MG/ML VIAL SLOW IVP SCH (17:45)
[2021-05-31] MEDS: OXcarbazepine 300 MG TAB PO SCH (20:45)
[2021-06-01] MEDS: Acetaminophen 650 MG/20.3 ML UDCUP PER TUBE SCH ×4 (03:30→20:54)
[2021-06-01] MEDS: Morphine 4 MG/ML VIAL SLOW IVP PRN ×2 (05:00→18:43)
[2021-06-01] MEDS: Clindamycin/D5W 900 MG in Premix Bag 1 BAG IVPB SCH ×3 (06:25→21:00)
[2021-06-01 06:32] LABS: #Eosinphils 0.3 thou/uL (0.0-0.7); #Monocytes 1.2 thou/uL (0.11-0.59); #Neutrophils 6.8 thou/uL (1.40-6.50); %Basophils 0.3 % (0.0-1.0); %Eosinophils 2.6 % (0.0-10.0); %Lymphocytes 19.3 % (21.0-51.0); %Neutrophils 65.8 % (42.0-75.0); Hemoglobin 9.3 g/dL (12.0-16.0); Mean Corpuscular HGB CONC 33.3 g/dL (32.0-36.0); Mean Corpuscular Hemoglobin 31.9 pg (27.0-31.0); Mean Corpuscular Volume 95.9 fL (78.0-98.0); Mean Platelet Volume 7.5 fL (7.4-10.4); Platelet Count 259 thou/uL (130-400); RBC Distribution Width 11.9 % (11.5-14.5); White Blood Cell (WBC) Count 10.4 thou/uL (4.8-10.8)
[2021-06-01 07:01] LABS: Anion Gap 13 mmol/L (10-20); BUN (Urea Nitrogen) 12 mg/dL (7.0-18.7); Calc. Creatinine Clearance 137 mL/min (70-130); Calcium 8.1 mg/dL (7.8-10.44); Carbon Dioxide 24 mmol/L (22-29); Chloride 104 mmol/L (98-107); Glucose 122 mg/dL (70-105); Magnesium 2.4 mg/dL (1.6-2.6); Phosphorus 4.6 mg/dL (2.3-4.7); Potassium 3.6 mmol/L (3.5-5.1); Sodium 137 mmol/L (136-145)
[2021-06-01] MEDS: Saccharomyces boulardii 250 MG CAP PO SCH (09:14)
[2021-06-01] MEDS: Chlorhexidine Gluconate 15 ML UDCUP SSP SCH ×2 (09:14→20:52)
[2021-06-01] MEDS: carBAMazepine 200 MG TAB PO SCH ×2 (09:15→20:53)
[2021-06-01] MEDS: risperiDONE 1 MG TAB PO SCH ×2 (09:15→20:53)
[2021-06-01] MEDS: levETIRAcetam 500 MG TAB PO SCH ×2 (09:16→20:52)
[2021-06-01] MEDS: clonazePAM 1 MG TAB PO SCH ×2 (09:16→20:52)
[2021-06-01] MEDS: Famotidine 20 MG TAB PO SCH ×2 (09:16→20:54)
[2021-06-01] MEDS: Potassium Chloride 10 MEQ in Premix Bag 1 BAG IVPB SCH ×2 (09:17→11:14)
[2021-06-01] MEDS: Polyethylene Glycol 3350 17 GM Packet PO SCH (09:17)
[2021-06-01] MEDS: Enoxaparin Sodium 40 MG/0.4 ML SYRINGE SC SCH (09:33)
[2021-06-01] MEDS: Bacitracin 1 PK TOP SCH ×2 (09:44→20:53)
[2021-06-01] MEDS: Senokot S 8.6-50 MG TAB PO SCH ×2 (10:05→20:54)
[2021-06-01] MEDS: Acetaminophen/Codeine 30-300mg Tablet PO PRN ×2 (14:55→20:53)
[2021-06-01] MEDS: OXcarbazepine 300 MG TAB PO SCH (20:52)
[2021-06-01] MEDS: Melatonin 3 MG TAB PO PRN (21:00)
[2021-06-02] MEDS: Acetaminophen 650 MG/20.3 ML UDCUP PER TUBE SCH ×4 (03:24→20:17)
[2021-06-02] MEDS: Acetaminophen/Codeine 30-300mg Tablet PO PRN ×4 (04:40→23:26)
[2021-06-02] MEDS: Clindamycin/D5W 900 MG in Premix Bag 1 BAG IVPB SCH ×3 (05:08→22:07)
[2021-06-02] MEDS: Morphine 4 MG/ML VIAL SLOW IVP PRN ×3 (08:28→20:38)
[2021-06-02] MEDS: Bacitracin 1 PK TOP SCH ×2 (08:33→20:19)
[2021-06-02] MEDS: Enoxaparin Sodium 40 MG/0.4 ML SYRINGE SC SCH (08:33)
[2021-06-02] MEDS: Saccharomyces boulardii 250 MG CAP PO SCH (08:34)
[2021-06-02] MEDS: Famotidine 20 MG TAB PO SCH ×2 (08:34→20:18)
[2021-06-02] MEDS: levETIRAcetam 500 MG TAB PO SCH ×2 (08:34→20:25)
[2021-06-02] MEDS: Chlorhexidine Gluconate 15 ML UDCUP SSP SCH ×2 (08:34→20:17)
[2021-06-02] MEDS: clonazePAM 1 MG TAB PO SCH ×2 (08:34→20:18)
[2021-06-02] MEDS: risperiDONE 1 MG TAB PO SCH ×2 (08:34→20:19)
[2021-06-02] MEDS: carBAMazepine 200 MG TAB PO SCH ×2 (08:34→20:19)
[2021-06-02] MEDS: Senokot S 8.6-50 MG TAB PO SCH ×2 (10:10→20:19)
[2021-06-02] MEDS: Polyethylene Glycol 3350 17 GM Packet PO SCH (10:10)
[2021-06-02] MEDS: OXcarbazepine 300 MG TAB PO SCH (20:20)
[2021-06-02] MEDS: Melatonin 3 MG TAB PO PRN (20:38)
[2021-06-02] MEDS: levETIRAcetam 500 mg/5 ml Oral Solution PO SCH (20:38)
[2021-06-03] MEDS: Acetaminophen 650 MG/20.3 ML UDCUP PER TUBE SCH ×4 (02:41→20:39)
[2021-06-03] MEDS: Clindamycin/D5W 900 MG in Premix Bag 1 BAG IVPB SCH ×2 (05:21→13:12)
[2021-06-03] MEDS: Acetaminophen/Codeine 30-300mg Tablet PO PRN ×3 (05:36→13:18)
[2021-06-03] MEDS: Famotidine 20 MG TAB PO SCH ×2 (07:33→20:39)
[2021-06-03] MEDS: risperiDONE 1 MG TAB PO SCH ×2 (07:33→20:39)
[2021-06-03] MEDS: carBAMazepine 200 MG TAB PO SCH ×2 (07:33→20:39)
[2021-06-03] MEDS: Chlorhexidine Gluconate 15 ML UDCUP SSP SCH ×2 (07:33→20:39)
[2021-06-03] MEDS: levETIRAcetam 500 mg/5 ml Oral Solution PO SCH ×2 (07:33→20:39)
[2021-06-03] MEDS: Saccharomyces boulardii 250 MG CAP PO SCH (07:33)
[2021-06-03] MEDS: Bacitracin 1 PK TOP SCH ×2 (07:33→20:39)
[2021-06-03] MEDS: clonazePAM 1 MG TAB PO SCH ×2 (07:33→20:39)
[2021-06-03] MEDS: Morphine 4 MG/ML VIAL SLOW IVP PRN (09:19)
[2021-06-03] MEDS: Polyethylene Glycol 3350 17 GM Packet PO SCH (10:31)
[2021-06-03] MEDS: Senokot S 8.6-50 MG TAB PO SCH ×2 (10:31→20:40)
[2021-06-03] MEDS: Enoxaparin Sodium 40 MG/0.4 ML SYRINGE SC SCH (10:31)
[2021-06-03] MEDS ORDERED: Sodium Chloride 0.9% 1,000 ML IV SCH (12:15)
[2021-06-03 12:20] LABS: SARS-CoV-2 PCR by NAA Not Detected (NotDetected)
[2021-06-03 12:43] LABS: #Eosinphils 0.3 thou/uL (0.0-0.7); #Lymphocytes 1.7 thou/uL (1.20-3.40); #Monocytes 0.9 thou/uL (0.11-0.59); #Neutrophils 7.4 thou/uL (1.40-6.50); %Basophils 0.3 % (0.0-1.0); %Lymphocytes 16.4 % (21.0-51.0); %Monocytes 8.9 % (0.0-10.0); %Neutrophils 71.4 % (42.0-75.0); Hemoglobin 9.5 g/dL (12.0-16.0); Mean Corpuscular HGB CONC 32.8 g/dL (32.0-36.0); Mean Corpuscular Hemoglobin 31.6 pg (27.0-31.0); Mean Corpuscular Volume 96.6 fL (78.0-98.0); Platelet Count 347 thou/uL (130-400); RBC Distribution Width 12.4 % (11.5-14.5); Red Blood Cell (RBC) Count 2.99 mill/uL (4.20-5.40); White Blood Cell (WBC) Count 10.4 thou/uL (4.8-10.8)
[2021-06-03] MEDS: OXcarbazepine 300 MG TAB PO SCH (20:38)
[2021-06-04] MEDS: Acetaminophen 650 MG/20.3 ML UDCUP PER TUBE SCH ×4 (02:27→19:49)
[2021-06-04] MEDS: Acetaminophen/Codeine 30-300mg Tablet PO PRN ×4 (03:35→19:18)
[2021-06-04] MEDS: Famotidine 20 MG TAB PO SCH ×2 (07:34→19:50)
[2021-06-04] MEDS: Bacitracin 1 PK TOP SCH ×2 (07:34→19:48)
[2021-06-04] MEDS: carBAMazepine 200 MG TAB PO SCH ×2 (07:34→21:20)
[2021-06-04] MEDS: Chlorhexidine Gluconate 15 ML UDCUP SSP SCH ×2 (07:34→19:48)
[2021-06-04] MEDS: risperiDONE 1 MG TAB PO SCH ×2 (07:34→19:50)
[2021-06-04] MEDS: clonazePAM 1 MG TAB PO SCH ×2 (07:34→19:49)
[2021-06-04] MEDS: Enoxaparin Sodium 40 MG/0.4 ML SYRINGE SC SCH (07:35)
[2021-06-04] MEDS: levETIRAcetam 500 mg/5 ml Oral Solution PO SCH ×2 (07:35→19:49)
[2021-06-04] MEDS: Polyethylene Glycol 3350 17 GM Packet PO SCH (07:35)
[2021-06-04] MEDS: Saccharomyces boulardii 250 MG CAP PO SCH (07:35)
[2021-06-04] MEDS: Senokot S 8.6-50 MG TAB PO SCH ×2 (07:35→21:20)
[2021-06-04] MEDS: Morphine 2 MG/ML VIAL SLOW IVP PRN ×2 (15:43→17:46)
[2021-06-04] MEDS: Melatonin 3 MG TAB PO PRN (19:49)
[2021-06-04] MEDS: OXcarbazepine 300 MG TAB PO SCH (19:50)
[2021-06-05] MEDS: Acetaminophen/Codeine 30-300mg Tablet PO PRN ×2 (01:16→01:18)
[2021-06-05] MEDS: Acetaminophen 650 MG/20.3 ML UDCUP PER TUBE SCH ×4 (02:59→21:28)
[2021-06-05] MEDS: clonazePAM 1 MG TAB PO SCH ×2 (08:35→21:30)
[2021-06-05] MEDS: levETIRAcetam 500 mg/5 ml Oral Solution PO SCH ×2 (08:35→21:28)
[2021-06-05] MEDS: Chlorhexidine Gluconate 15 ML UDCUP SSP SCH ×2 (08:36→21:31)
[2021-06-05] MEDS: Famotidine 20 MG TAB PO SCH ×2 (08:36→21:30)
[2021-06-05] MEDS: Bacitracin 1 PK TOP SCH ×2 (08:36→21:31)
[2021-06-05] MEDS: Polyethylene Glycol 3350 17 GM Packet PO SCH (08:36)
[2021-06-05] MEDS: Saccharomyces boulardii 250 MG CAP PO SCH (08:36)
[2021-06-05] MEDS: risperiDONE 1 MG TAB PO SCH ×2 (08:36→21:30)
[2021-06-05] MEDS: Enoxaparin Sodium 40 MG/0.4 ML SYRINGE SC SCH (08:36)
[2021-06-05] MEDS: Senokot S 8.6-50 MG TAB PO SCH ×2 (08:36→20:04)
[2021-06-05] MEDS: carBAMazepine 200 MG TAB PO SCH ×2 (08:37→21:29)
[2021-06-05 10:38] LABS: Anion Gap 18 mmol/L (10-20); BUN (Urea Nitrogen) 20 mg/dL (7.0-18.7); Calc. Creatinine Clearance 140 mL/min (70-130); Calcium 9.2 mg/dL (7.8-10.44); Carbon Dioxide 18 mmol/L (22-29); Chloride 102 mmol/L (98-107); Glucose 190 mg/dL (70-105); Magnesium 2.7 mg/dL (1.6-2.6); Phosphorus 3.5 mg/dL (2.3-4.7); Potassium 4.6 mmol/L (3.5-5.1); Sodium 133 mmol/L (136-145)
[2021-06-05 12:49] LABS: #Basophils 0.1 thou/uL (0.0-0.2); #Eosinphils 0.2 thou/uL (0.0-0.7); #Lymphocytes 2.3 thou/uL (1.20-3.40); #Monocytes 1.1 thou/uL (0.11-0.59); #Neutrophils 6.5 thou/uL (1.40-6.50); %Basophils 0.7 % (0.0-1.0); %Eosinophils 1.9 % (0.0-10.0); %Lymphocytes 22.8 % (21.0-51.0); %Monocytes 10.9 % (0.0-10.0); %Neutrophils 63.6 % (42.0-75.0); Hemoglobin 9.7 g/dL (12.0-16.0); Mean Corpuscular HGB CONC 33.3 g/dL (32.0-36.0); Mean Corpuscular Hemoglobin 31.8 pg (27.0-31.0); Mean Corpuscular Volume 95.5 fL (78.0-98.0); Mean Platelet Volume 7.3 fL (7.4-10.4); Platelet Count 504 thou/uL (130-400); Red Blood Cell (RBC) Count 3.06 mill/uL (4.20-5.40); White Blood Cell (WBC) Count 10.2 thou/uL (4.8-10.8)
[2021-06-05] MEDS: Morphine 2 MG/ML VIAL SLOW IVP PRN ×2 (15:15→21:23)
[2021-06-05] MEDS: Sodium Chloride 3% (15 ML) NEB NEB SCH (20:04)
[2021-06-05] MEDS: Melatonin 3 MG TAB PO PRN (21:29)
[2021-06-05] MEDS: OXcarbazepine 300 MG TAB PO SCH (21:29)
[2021-06-05] MEDS: guaiFENesin 200 MG TAB PO SCH (21:30)
[2021-06-06] MEDS: Acetaminophen 650 MG/20.3 ML UDCUP PER TUBE SCH ×4 (01:50→20:39)
[2021-06-06] MEDS: Acetaminophen/Codeine 30-300mg Tablet PO PRN (01:50)
[2021-06-06] MEDS: Morphine 2 MG/ML VIAL SLOW IVP PRN ×3 (06:13→21:20)
[2021-06-06] MEDS: Sodium Chloride 3% (15 ML) NEB NEB SCH ×2 (08:17→19:06)
[2021-06-06] MEDS: Chlorhexidine Gluconate 15 ML UDCUP SSP SCH ×2 (08:56→20:40)
[2021-06-06] MEDS: Enoxaparin Sodium 40 MG/0.4 ML SYRINGE SC SCH (08:57)
[2021-06-06] MEDS: Saccharomyces boulardii 250 MG CAP PO SCH (08:58)
[2021-06-06] MEDS: Senokot S 8.6-50 MG TAB PO SCH ×2 (08:58→20:42)
[2021-06-06] MEDS: levETIRAcetam 500 mg/5 ml Oral Solution PO SCH ×2 (08:58→20:39)
[2021-06-06] MEDS: Bacitracin 1 PK TOP SCH ×2 (08:58→20:40)
[2021-06-06] MEDS: carBAMazepine 200 MG TAB PO SCH ×2 (08:59→20:39)
[2021-06-06] MEDS: risperiDONE 1 MG TAB PO SCH ×2 (08:59→20:40)
[2021-06-06] MEDS: Famotidine 20 MG TAB PO SCH ×2 (08:59→20:40)
[2021-06-06] MEDS: guaiFENesin 200 MG TAB PO SCH ×2 (08:59→20:39)
[2021-06-06] MEDS: clonazePAM 1 MG TAB PO SCH ×2 (08:59→20:40)
[2021-06-06] MEDS ORDERED: Lactated Ringer's 500 ML IV SCH (09:15)
[2021-06-06] MEDS: Polyethylene Glycol 3350 17 GM Packet PO SCH (10:27)
[2021-06-06] MEDS: OXcarbazepine 300 MG TAB PO SCH (20:39)
[2021-06-06] MEDS: Melatonin 3 MG TAB PO PRN (20:42)
[2021-06-06] MEDS ORDERED: Metoprolol Tartrate 25 MG TAB PO SCH (21:45)
[2021-06-06] MEDS ORDERED: Pancrelipase DR 12,000 1 CAP FS PRN (22:00)
[2021-06-06] MEDS ORDERED: Sodium Bicarbonate Tab 325 MG TAB PER TUBE PRN (22:00)
[2021-06-07] MEDS: Morphine 2 MG/ML VIAL SLOW IVP PRN ×2 (03:16→18:23)
[2021-06-07] MEDS: Acetaminophen 650 MG/20.3 ML UDCUP PER TUBE SCH ×4 (06:19→21:50)
[2021-06-07] MEDS: Sodium Chloride 3% (15 ML) NEB NEB SCH ×2 (07:39→18:54)
[2021-06-07] MEDS: Saccharomyces boulardii 250 MG CAP PO SCH (09:33)
[2021-06-07] MEDS: Enoxaparin Sodium 40 MG/0.4 ML SYRINGE SC SCH (09:33)
[2021-06-07] MEDS: levETIRAcetam 500 mg/5 ml Oral Solution PO SCH ×2 (09:33→21:49)
[2021-06-07] MEDS: guaiFENesin 200 MG TAB PO SCH ×2 (09:33→21:48)
[2021-06-07] MEDS: Chlorhexidine Gluconate 15 ML UDCUP SSP SCH ×2 (09:33→21:51)
[2021-06-07] MEDS: Senokot S 8.6-50 MG TAB PO SCH ×2 (09:33→21:52)
[2021-06-07] MEDS: Polyethylene Glycol 3350 17 GM Packet PO SCH (09:33)
[2021-06-07] MEDS: clonazePAM 1 MG TAB PO SCH ×2 (09:34→21:49)
[2021-06-07] MEDS: Bacitracin 1 PK TOP SCH ×2 (09:34→21:51)
[2021-06-07] MEDS: Metoprolol Tartrate 25 MG TAB PO SCH ×2 (09:35→21:49)
[2021-06-07] MEDS: risperiDONE 1 MG TAB PO SCH ×2 (09:35→21:50)
[2021-06-07] MEDS: carBAMazepine 200 MG TAB PO SCH ×2 (09:35→21:49)
[2021-06-07] MEDS: Famotidine 20 MG TAB PO SCH ×2 (09:35→21:49)
[2021-06-07] MEDS: Scopolamine 1.5 mg/72 hour Patch TD SCH (09:36)
[2021-06-07] MEDS ORDERED: Piperacillin/Tazobactam 3.375 GM in Sodium Chloride 0.9% 100 ML IVPB SCH (15:00)
[2021-06-07] MEDS: OXcarbazepine 300 MG TAB PO SCH (21:49)
[2021-06-07] MEDS: Melatonin 3 MG TAB PO PRN (21:49)
[2021-06-07] MEDS: Piperacillin/Tazobactam 3.375 GM in Sodium Chloride 0.9% 100 ML IVPB SCH (21:51)
[2021-06-07] MEDS: Acetaminophen/Codeine 30-300mg Tablet PO PRN (21:53)
[2021-06-07] MEDS ORDERED: Piperacillin/Tazobactam 2.25 GM in Sodium Chloride 0.9% 100 ML IVPB SCH (22:00)
[2021-06-08] MEDS: Acetaminophen 650 MG/20.3 ML UDCUP PER TUBE SCH ×4 (03:03→20:48)
[2021-06-08] MEDS: Piperacillin/Tazobactam 3.375 GM in Sodium Chloride 0.9% 100 ML IVPB SCH ×2 (03:58→11:05)
[2021-06-08 06:41] LABS: Anion Gap 16 mmol/L (10-20); BUN (Urea Nitrogen) 29 mg/dL (7.0-18.7); Calc. Creatinine Clearance 123 mL/min (70-130); Calcium 9.2 mg/dL (7.8-10.44); Carbon Dioxide 21 mmol/L (22-29); Chloride 107 mmol/L (98-107); Glucose 145 mg/dL (70-105); Magnesium 2.7 mg/dL (1.6-2.6); Phosphorus 4.8 mg/dL (2.3-4.7); Potassium 3.9 mmol/L (3.5-5.1); Sodium 140 mmol/L (136-145)
[2021-06-08] MEDS: Sodium Chloride 3% (15 ML) NEB NEB SCH ×3 (07:54→18:33)
[2021-06-08] MEDS: Morphine 2 MG/ML VIAL SLOW IVP PRN (08:35)
[2021-06-08] MEDS: levETIRAcetam 500 mg/5 ml Oral Solution PO SCH ×2 (08:37→20:48)
[2021-06-08] MEDS: Enoxaparin Sodium 40 MG/0.4 ML SYRINGE SC SCH (08:37)
[2021-06-08] MEDS: guaiFENesin 200 MG TAB PO SCH ×2 (08:37→20:48)
[2021-06-08] MEDS: Saccharomyces boulardii 250 MG CAP PO SCH (08:38)
[2021-06-08] MEDS: Metoprolol Tartrate 25 MG TAB PO SCH ×2 (08:38→20:48)
[2021-06-08] MEDS: Bacitracin 1 PK TOP SCH ×2 (08:38→20:48)
[2021-06-08] MEDS: risperiDONE 1 MG TAB PO SCH ×2 (08:39→20:50)
[2021-06-08] MEDS: Polyethylene Glycol 3350 17 GM Packet PO SCH (08:39)
[2021-06-08] MEDS: Senokot S 8.6-50 MG TAB PO SCH ×2 (08:39→20:50)
[2021-06-08] MEDS: Famotidine 20 MG TAB PO SCH ×2 (08:39→20:49)
[2021-06-08] MEDS: Chlorhexidine Gluconate 15 ML UDCUP SSP SCH ×2 (08:39→20:48)
[2021-06-08] MEDS: carBAMazepine 200 MG TAB PO SCH ×2 (08:39→20:50)
[2021-06-08] MEDS: clonazePAM 1 MG TAB PO SCH ×2 (08:39→20:50)
[2021-06-08] MEDS: Acetaminophen/Codeine 30-300mg Tablet PO PRN (13:08)
[2021-06-08] MEDS: OXcarbazepine 300 MG TAB PO SCH (20:50)
[2021-06-08] MEDS: Melatonin 3 MG TAB PO PRN (21:08)
[2021-06-09] MEDS: Acetaminophen 650 MG/20.3 ML UDCUP PER TUBE SCH ×4 (02:16→20:08)
[2021-06-09 06:36] LABS: Magnesium 2.8 mg/dL (1.6-2.6); Phosphorus 4.2 mg/dL (2.3-4.7)
[2021-06-09] MEDS: Sodium Chloride 3% (15 ML) NEB NEB SCH ×2 (08:02→19:13)
[2021-06-09] MEDS: Metoprolol Tartrate 25 MG TAB PO SCH ×2 (08:49→20:11)
[2021-06-09] MEDS: Polyethylene Glycol 3350 17 GM Packet PO SCH (08:51)
[2021-06-09] MEDS: levETIRAcetam 500 mg/5 ml Oral Solution PO SCH ×2 (08:51→20:08)
[2021-06-09] MEDS: Chlorhexidine Gluconate 15 ML UDCUP SSP SCH ×2 (08:52→20:07)
[2021-06-09] MEDS: carBAMazepine 200 MG TAB PO SCH ×2 (08:54→20:09)
[2021-06-09] MEDS: Enoxaparin Sodium 40 MG/0.4 ML SYRINGE SC SCH (08:54)
[2021-06-09] MEDS: Saccharomyces boulardii 250 MG CAP PO SCH (08:54)
[2021-06-09] MEDS: Famotidine 20 MG TAB PO SCH ×2 (08:55→20:10)
[2021-06-09] MEDS: clonazePAM 1 MG TAB PO SCH ×2 (08:55→20:11)
[2021-06-09] MEDS: risperiDONE 1 MG TAB PO SCH ×2 (08:55→20:10)
[2021-06-09] MEDS: guaiFENesin 200 MG TAB PO SCH ×2 (08:55→20:09)
[2021-06-09] MEDS: Senokot S 8.6-50 MG TAB PO SCH ×2 (08:55→20:10)
[2021-06-09] MEDS: Bacitracin 1 PK TOP SCH ×2 (08:55→20:09)
[2021-06-09] MEDS: Acetaminophen/Codeine 30-300mg Tablet PO PRN ×2 (13:40→23:17)
[2021-06-09] MEDS: OXcarbazepine 300 MG TAB PO SCH (20:10)
[2021-06-09 21:07] LABS: SARS-CoV-2 PCR by NAA Not Detected (NotDetected)
[2021-06-09] MEDS: Melatonin 3 MG TAB PO PRN (23:17)
[2021-06-10] MEDS: Acetaminophen 650 MG/20.3 ML UDCUP PER TUBE SCH ×4 (03:13→22:40)
[2021-06-10] MEDS: Acetaminophen/Codeine 30-300mg Tablet PO PRN ×2 (04:42→20:38)
[2021-06-10] MEDS: Scopolamine 1.5 mg/72 hour Patch TD SCH (08:21)
[2021-06-10] MEDS: Enoxaparin Sodium 40 MG/0.4 ML SYRINGE SC SCH (08:26)
[2021-06-10] MEDS: Polyethylene Glycol 3350 17 GM Packet PO SCH (08:26)
[2021-06-10] MEDS: risperiDONE 1 MG TAB PO SCH ×2 (08:26→20:38)
[2021-06-10] MEDS: Metoprolol Tartrate 25 MG TAB PO SCH ×2 (08:27→20:39)
[2021-06-10] MEDS: Saccharomyces boulardii 250 MG CAP PO SCH (08:27)
[2021-06-10] MEDS: Senokot S 8.6-50 MG TAB PO SCH ×2 (08:27→20:37)
[2021-06-10] MEDS: Chlorhexidine Gluconate 15 ML UDCUP SSP SCH ×2 (08:28→20:37)
[2021-06-10] MEDS: guaiFENesin 200 MG TAB PO SCH ×2 (08:28→20:38)
[2021-06-10] MEDS: clonazePAM 1 MG TAB PO SCH ×2 (08:28→20:38)
[2021-06-10] MEDS: Famotidine 20 MG TAB PO SCH ×2 (08:28→20:38)
[2021-06-10] MEDS: carBAMazepine 200 MG TAB PO SCH ×2 (08:34→20:38)
[2021-06-10] MEDS: Bacitracin 1 PK TOP SCH ×2 (08:48→20:41)
[2021-06-10] MEDS: Sodium Chloride 3% (15 ML) NEB NEB SCH ×2 (09:30→19:47)
[2021-06-10] MEDS: levETIRAcetam 500 mg/5 ml Oral Solution PO SCH ×2 (10:06→20:37)
[2021-06-10] MEDS: Morphine 2 MG/ML VIAL SLOW IVP PRN ×2 (10:43→22:44)
[2021-06-10] MEDS: OXcarbazepine 300 MG TAB PO SCH (20:38)
[2021-06-10] MEDS: Melatonin 3 MG TAB PO PRN (20:41)
[2021-06-11] MEDS: Acetaminophen 650 MG/20.3 ML UDCUP PER TUBE SCH ×4 (02:39→21:35)
[2021-06-11 05:33] VITALS: BMI 23.7
[2021-06-11] MEDS: Sodium Chloride 3% (15 ML) NEB NEB SCH ×2 (06:55→22:45)
[2021-06-11] MEDS: Saccharomyces boulardii 250 MG CAP PO SCH (08:20)
[2021-06-11] MEDS: Senokot S 8.6-50 MG TAB PO SCH ×2 (08:20→21:37)
[2021-06-11] MEDS: Enoxaparin Sodium 40 MG/0.4 ML SYRINGE SC SCH (08:21)
[2021-06-11] MEDS: carBAMazepine 200 MG TAB PO SCH ×2 (08:21→21:35)
[2021-06-11] MEDS: Famotidine 20 MG TAB PO SCH ×2 (08:21→21:37)
[2021-06-11] MEDS: risperiDONE 1 MG TAB PO SCH ×2 (08:21→21:35)
[2021-06-11] MEDS: Chlorhexidine Gluconate 15 ML UDCUP SSP SCH ×2 (08:21→21:37)
[2021-06-11] MEDS: clonazePAM 1 MG TAB PO SCH ×2 (08:22→21:37)
[2021-06-11] MEDS: levETIRAcetam 500 mg/5 ml Oral Solution PO SCH ×2 (08:22→21:35)
[2021-06-11] MEDS: Bacitracin 1 PK TOP SCH ×2 (08:22→21:36)
[2021-06-11] MEDS: Metoprolol Tartrate 25 MG TAB PO SCH ×2 (08:23→21:36)
[2021-06-11] MEDS: Polyethylene Glycol 3350 17 GM Packet PO SCH (08:24)
[2021-06-11] MEDS: guaiFENesin 200 MG TAB PO SCH ×2 (08:24→21:37)
[2021-06-11] MEDS: Morphine 2 MG/ML VIAL SLOW IVP PRN ×2 (08:42→21:51)
[2021-06-11] MEDS: OXcarbazepine 300 MG TAB PO SCH (21:36)
[2021-06-11] MEDS: Melatonin 3 MG TAB PO PRN (22:47)
[2021-06-12] MEDS: Acetaminophen 650 MG/20.3 ML UDCUP PER TUBE SCH ×4 (03:50→21:16)
[2021-06-12] MEDS: Sodium Chloride 3% (15 ML) NEB NEB SCH (07:14)
[2021-06-12] MEDS: Bacitracin 1 PK TOP SCH ×2 (09:10→21:16)
[2021-06-12] MEDS: guaiFENesin 200 MG TAB PO SCH ×2 (09:10→21:18)
[2021-06-12] MEDS: Saccharomyces boulardii 250 MG CAP PO SCH (09:10)
[2021-06-12] MEDS: Chlorhexidine Gluconate 15 ML UDCUP SSP SCH ×2 (09:11→21:16)
[2021-06-12] MEDS: risperiDONE 1 MG TAB PO SCH ×2 (09:11→21:16)
[2021-06-12] MEDS: levETIRAcetam 500 mg/5 ml Oral Solution PO SCH ×2 (09:11→21:16)
[2021-06-12] MEDS: carBAMazepine 200 MG TAB PO SCH ×2 (09:11→21:19)
[2021-06-12] MEDS: clonazePAM 1 MG TAB PO SCH ×2 (09:11→21:16)
[2021-06-12] MEDS: Famotidine 20 MG TAB PO SCH ×2 (09:11→21:19)
[2021-06-12] MEDS: Metoprolol Tartrate 25 MG TAB PO SCH ×2 (09:12→21:18)
[2021-06-12] MEDS: Enoxaparin Sodium 40 MG/0.4 ML SYRINGE SC SCH (09:12)
[2021-06-12] MEDS: Polyethylene Glycol 3350 17 GM Packet PO SCH (10:36)
[2021-06-12] MEDS: Senokot S 8.6-50 MG TAB PO SCH ×2 (10:36→21:18)
[2021-06-12] MEDS: Morphine 2 MG/ML VIAL SLOW IVP PRN ×2 (11:13→21:16)
[2021-06-12] MEDS: Acetaminophen W/ Codeine 5 ML UDCUP PO PRN (16:06)
[2021-06-12] MEDS: Melatonin 3 MG TAB PO PRN (21:16)
[2021-06-12] MEDS: OXcarbazepine 300 MG TAB PO SCH (21:16)
[2021-06-13] MEDS: Acetaminophen 650 MG/20.3 ML UDCUP PER TUBE SCH ×4 (04:13→21:03)
[2021-06-13] MEDS: carBAMazepine 200 MG TAB PO SCH ×2 (09:07→21:04)
[2021-06-13] MEDS: Chlorhexidine Gluconate 15 ML UDCUP SSP SCH ×2 (09:07→21:02)
[2021-06-13] MEDS: clonazePAM 1 MG TAB PO SCH ×2 (09:08→21:05)
[2021-06-13] MEDS: Metoprolol Tartrate 25 MG TAB PO SCH ×2 (09:09→21:04)
[2021-06-13] MEDS: levETIRAcetam 500 mg/5 ml Oral Solution PO SCH ×2 (09:09→21:03)
[2021-06-13] MEDS: Saccharomyces boulardii 250 MG CAP PO SCH (09:09)
[2021-06-13] MEDS: Bacitracin 1 PK TOP SCH ×2 (09:09→21:02)
[2021-06-13] MEDS: guaiFENesin 200 MG TAB PO SCH ×2 (09:09→21:15)
[2021-06-13] MEDS: Enoxaparin Sodium 40 MG/0.4 ML SYRINGE SC SCH (09:09)
[2021-06-13] MEDS: risperiDONE 1 MG TAB PO SCH ×2 (09:09→21:05)
[2021-06-13] MEDS: Famotidine 20 MG TAB PO SCH ×2 (09:09→21:05)
[2021-06-13] MEDS: Senokot S 8.6-50 MG TAB PO SCH ×2 (09:10→21:05)
[2021-06-13] MEDS: Polyethylene Glycol 3350 17 GM Packet PO SCH (09:10)
[2021-06-13] MEDS: Morphine 2 MG/ML VIAL SLOW IVP PRN ×2 (09:44→21:42)
[2021-06-13] MEDS: Scopolamine 1.5 mg/72 hour Patch TD SCH (10:35)
[2021-06-13] MEDS: Acetaminophen W/ Codeine 5 ML UDCUP PO PRN (18:18)
[2021-06-13] MEDS: OXcarbazepine 300 MG TAB PO SCH (21:03)
[2021-06-13] MEDS: Melatonin 3 MG TAB PO PRN (21:43)
[2021-06-14] MEDS: Acetaminophen 650 MG/20.3 ML UDCUP PER TUBE SCH ×4 (03:16→21:01)
[2021-06-14] MEDS: Metoprolol Tartrate 25 MG TAB PO SCH (08:00)
[2021-06-14] MEDS: carBAMazepine 200 MG TAB PO SCH ×2 (08:23→21:03)
[2021-06-14] MEDS: Enoxaparin Sodium 40 MG/0.4 ML SYRINGE SC SCH (08:23)
[2021-06-14] MEDS: Chlorhexidine Gluconate 15 ML UDCUP SSP SCH ×2 (08:23→21:02)
[2021-06-14] MEDS: guaiFENesin 200 MG TAB PO SCH ×2 (08:23→21:04)
[2021-06-14] MEDS: Bacitracin 1 PK TOP SCH ×2 (08:24→21:04)
[2021-06-14] MEDS: Saccharomyces boulardii 250 MG CAP PO SCH (08:24)
[2021-06-14] MEDS: clonazePAM 1 MG TAB PO SCH ×2 (08:25→21:04)
[2021-06-14] MEDS: Famotidine 20 MG TAB PO SCH ×2 (08:25→21:04)
[2021-06-14] MEDS: risperiDONE 1 MG TAB PO SCH ×2 (08:25→21:04)
[2021-06-14] MEDS: Polyethylene Glycol 3350 17 GM Packet PO SCH (08:26)
[2021-06-14] MEDS: Senokot S 8.6-50 MG TAB PO SCH ×2 (08:26→21:05)
[2021-06-14] MEDS: Morphine 2 MG/ML VIAL SLOW IVP PRN (08:45)
[2021-06-14] MEDS: levETIRAcetam 500 mg/5 ml Oral Solution PO SCH ×2 (09:45→21:02)
[2021-06-14] MEDS ORDERED: Dextrose 5%-Lactated Ringers 1,000 ML IV SCH (16:15)
[2021-06-14] MEDS: Acetaminophen W/ Codeine 5 ML UDCUP PO PRN (18:04)
[2021-06-14] MEDS: Melatonin 3 MG TAB PO PRN (21:03)
[2021-06-14] MEDS: OXcarbazepine 300 MG TAB PO SCH (21:05)
[2021-06-15] MEDS: Acetaminophen 650 MG/20.3 ML UDCUP PER TUBE SCH ×2 (03:31→10:15)
[2021-06-15] MEDS: levETIRAcetam 500 mg/5 ml Oral Solution PO SCH (10:13)
[2021-06-15] MEDS: Chlorhexidine Gluconate 15 ML UDCUP SSP SCH (10:13)
[2021-06-15] MEDS: clonazePAM 1 MG TAB PO SCH (10:14)
[2021-06-15] MEDS: Enoxaparin Sodium 40 MG/0.4 ML SYRINGE SC SCH (10:14)
[2021-06-15] MEDS: carBAMazepine 200 MG TAB PO SCH (10:14)
[2021-06-15] MEDS: risperiDONE 1 MG TAB PO SCH (10:14)
[2021-06-15] MEDS: Acetaminophen W/ Codeine 5 ML UDCUP PO PRN (10:20)
[2021-06-15] MEDS: Senokot S 8.6-50 MG TAB PO SCH (10:55)
[2021-06-15] MEDS: guaiFENesin 200 MG TAB PO SCH (10:55)
[2021-06-15] MEDS: Polyethylene Glycol 3350 17 GM Packet PO SCH (10:55)
[2021-06-15 12:31] VITALS: BP 101/61; TEMP 97.8
== END 2021-06-15 15:35 | DRG 11 ==
LOC: ERS 10:48 → EEVIPCON 11:24 → CCU 11:24 → SURG B 05-30 19:23 → SURG A 05-31 23:17
PROVIDERS: ADMIT Student in an Organized Health Care Education/Training Program; ATTEND Surgery
PROC: 02HV33Z Insertion of Infusion Device into Superior Vena Cava, Percutaneous Approach (ICD-10-PCS; 2021-05-27)
PROC: 0DH67UZ Insertion of Feeding Device into Stomach, Via Natural or Artificial Opening (ICD-10-PCS; 2021-05-27)
PROC: 0B113F4 Bypass Trachea to Cutaneous with Tracheostomy Device, Percutaneous Approach (ICD-10-PCS; principal; 2021-05-28)
PROC: 0WQ20ZZ Repair Face, Open Approach (ICD-10-PCS; 2021-05-28)
PROC: 0NS Head and Facial Bones, Reposition (ICD-10-PCS; 2021-05-28)
PROC: 0CQ40ZZ Repair Buccal Mucosa, Open Approach (ICD-10-PCS; 2021-05-28)
PROC: 0CDXXZ1 Extraction of Lower Tooth, Multiple, External Approach (ICD-10-PCS; 2021-05-28)
DX: S02.602B Fracture of unspecified part of body of left mandible, initial encounter for open fracture (principal); J96.01 Acute respiratory failure with hypoxia; R40.2222 Coma scale, best verbal response, incomprehensible words, at arrival to emergency department; R40.2122 Coma scale, eyes open, to pain, at arrival to emergency department; J69.0 Pneumonitis due to inhalation of food and vomit; S27.0XXA Traumatic pneumothorax, initial encounter; D62 Acute posthemorrhagic anemia; Z20.822 Contact with and (suspected) exposure to COVID-19; G40.909 Epilepsy, unspecified, not intractable, without status epilepticus; F31.9 Bipolar disorder, unspecified; F43.10 Post-traumatic stress disorder, unspecified; F17.210 Nicotine dependence, cigarettes, uncomplicated; E87.6 Hypokalemia; R40.2352 Coma scale, best motor response, localizes pain, at arrival to emergency department; E83.42 Hypomagnesemia; E83.39 Other disorders of phosphorus metabolism; E83.51 Hypocalcemia; Y95 Nosocomial condition; Z90.710 Acquired absence of both cervix and uterus; Z88.8 Allergy status to other drugs, medicaments and biological substances; Z98.890 Other specified postprocedural states
CPT/HCPCS: 31500; 36415; 36416; 36556; 36600; 51702; 70450; 70486; 70498; 71045; 72125; 74018; 76377; 80048; 80053; 80306; 80307; 81003; 82805; 83605; 83735; 84100; 85025; 85610; 85730; 86850; 86900; 86901; 87070; 87077; 87186; 87205; 90471; 90715; 93005; 93010; 94002; 94003; 94640; 96365; 96375; C1713; G0390; J0690; J1100; J1630; J1650; J1815; J1953; J1956; J2060; J2250; J2270; J2405; J2543; J2704; J3010; J3475; J3480; J3490; J7030; J7050; J7120; J7620; P9045; Q9967; S0028; U0002; U0003; U0005

== ENCOUNTER 2021-06-16 18:20 | Emergency (ER) | payer MEDICAID, OTHER ==
[2021-06-16 19:58] LABS: Hemoglobin 10.6 g/dL (12.0-16.0); Mean Corpuscular HGB CONC 34.3 g/dL (32.0-36.0); Mean Corpuscular Hemoglobin 31.6 pg (27.0-31.0); Mean Corpuscular Volume 92.2 fL (78.0-98.0); Mean Platelet Volume 7.3 fL (7.4-10.4); Platelet Count 476 thou/uL (130-400); RBC Distribution Width 11.5 % (11.5-14.5); Red Blood Cell (RBC) Count 3.36 mill/uL (4.20-5.40)
[2021-06-16 20:13] LABS: Band 1 % (5-11); Eosinophils 2 % (0-10); Lymphocytes 35 % (21-51); MDiff Complete? YES; Monocytes 6 % (0-10); Neutrophil 42 % (42-75); Platelet Morphology Comment Appears Increased; Polychromasia SLIGHT = 2-3 cells (100X) (0-2/hpf); Reactive Lymphocytes 14 % (0-10); Stomatocytes SLIGHT = 2-5 cells (100X) (0-1/hpf)
[2021-06-16 20:16] LABS: ALT (SGPT) 21 U/L (8-55); AST (SGOT) 14 U/L (5-34); Albumin 4.1 g/dL (3.5-5.0); Alkaline Phosphatase 75 U/L (40-110); Anion Gap 16 mmol/L (10-20); BUN (Urea Nitrogen) 17 mg/dL (7.0-18.7); Bilirubin, Total 0.3 mg/dL (0.2-1.2); Calc. Creatinine Clearance 0 mL/min (70-130); Calcium 9.2 mg/dL (7.8-10.44); Carbon Dioxide 23 mmol/L (22-29); Chloride 103 mmol/L (98-107); Globulin 3.7 g/dL (2.4-3.5); Glucose 76 mg/dL (70-105); Potassium 3.9 mmol/L (3.5-5.1); Protein, Total 7.8 g/dL (6.0-8.3); Sodium 138 mmol/L (136-145)
== END 2021-06-16 23:40 ==
LOC: ERS 18:20 → MERGE 18:20 → ERS 23:40
DX: R68.84 Jaw pain (principal)
CPT/HCPCS: 36415; 70486; 80053; 85025

== ENCOUNTER 2021-06-18 17:28 | Emergency (ER) | payer OTHER ==
[2021-06-18 18:34] LABS: #Lymphocytes 2.3 thou/uL (1.20-3.40); #Monocytes 0.4 thou/uL (0.11-0.59); #Neutrophils 4.4 thou/uL (1.40-6.50); %Basophils 0.6 % (0.0-1.0); %Eosinophils 0.6 % (0.0-10.0); %Lymphocytes 32.1 % (21.0-51.0); %Monocytes 6.1 % (0.0-10.0); %Neutrophils 60.7 % (42.0-75.0); Mean Corpuscular HGB CONC 33.2 g/dL (32.0-36.0); Mean Corpuscular Hemoglobin 30.7 pg (27.0-31.0); Mean Corpuscular Volume 92.4 fL (78.0-98.0); Mean Platelet Volume 7.2 fL (7.4-10.4); Platelet Count 417 thou/uL (130-400); RBC Distribution Width 11.4 % (11.5-14.5); Red Blood Cell (RBC) Count 3.27 mill/uL (4.20-5.40); White Blood Cell (WBC) Count 7.2 thou/uL (4.8-10.8)
[2021-06-18 18:55] LABS: ALT (SGPT) 21 U/L (8-55); AST (SGOT) 14 U/L (5-34); Albumin 3.9 g/dL (3.5-5.0); Alkaline Phosphatase 71 U/L (40-110); Anion Gap 11 mmol/L (10-20); BUN (Urea Nitrogen) 16 mg/dL (7.0-18.7); Bilirubin, Total 0.2 mg/dL (0.2-1.2); Calc. Creatinine Clearance 0 mL/min (70-130); Calcium 8.9 mg/dL (7.8-10.44); Carbon Dioxide 27 mmol/L (22-29); Chloride 102 mmol/L (98-107); Globulin 3.5 g/dL (2.4-3.5); Glucose 74 mg/dL (70-105); Potassium 4.1 mmol/L (3.5-5.1); Protein, Total 7.4 g/dL (6.0-8.3); Sodium 136 mmol/L (136-145)
== END 2021-06-18 21:53 ==
LOC: ERS 17:28
DX: R13.10 Dysphagia, unspecified (principal); R45.851 Suicidal ideations
CPT/HCPCS: 36415; 80053; 85025; 99285

== ENCOUNTER 2021-11-04 08:09 | Day surgery (SDC) | payer MEDICARE, OTHER ==
[2021-11-03 08:49] VITALS: BMI 22.3
[2021-11-04] MEDS ORDERED: Midazolam HCl 2 mg/2 ml Vial ONE (10:44)
[2021-11-04] MEDS ORDERED: Ketamine 50 MG/ML (10ML VIAL) ONE (10:45)
[2021-11-04] MEDS ORDERED: fentaNYL PF 100 MCG/2 ML SYRINGE ONE ×2 (10:45→13:12)
[2021-11-04] MEDS ORDERED: Oxymetazoline HCl 0.05% (30 ML BOT) ONE (10:45)
[2021-11-04] MEDS ORDERED: Dexamethasone 20 MG/5 ML VIAL ONE (10:47)
[2021-11-04] MEDS ORDERED: Glycopyrrolate 0.2 MG/ML 5 ML SYRINGE ONE (10:47)
[2021-11-04] MEDS ORDERED: Ketorolac Tromethamine 30 MG/ML VIAL ONE (10:47)
[2021-11-04] MEDS ORDERED: PROPOFOL 200 MG/20 ML VIAL ONE (10:47)
[2021-11-04] MEDS ORDERED: Ondansetron PF 4 MG/2 ML Vial ONE (10:47)
[2021-11-04] MEDS ORDERED: Rocuronium Bromide 10 MG/ML (10ML VIAL) ONE (10:47)
[2021-11-04] MEDS ORDERED: Clindamycin/D5W 900 mg/50 ml Premix Bag ONE (10:57)
[2021-11-04] MEDS ORDERED: Chlorhexidine Gluconate 15 ML UDCUP SSP ONE (11:52)
[2021-11-04] MEDS ORDERED: Bupivacaine/Epinephrine 0.25% 30 ML VIAL ONE (11:58)
[2021-11-04] MEDS ORDERED: Bacitracin Zinc Ointment 30 gm TUBE ONE (12:05)
[2021-11-04] MEDS ORDERED: HYDROcodone/Acetaminophen 5/325 mg Tablet ONE (14:19)
== END 2021-11-04 14:43 | disposition home or self-care (01) ==
LOC: SDC 08:09
PROVIDERS: ATTEND Dentist Oral and Maxillofacial Surgery
PROC: 0CDXXZ0 Extraction of Lower Tooth, Single, External Approach (ICD-10-PCS; principal; 2021-11-04)
PROC: 0NP Head and Facial Bones, Removal (ICD-10-PCS; 2021-11-04)
DX: S02.609K Fracture of mandible, unspecified, subsequent encounter for fracture with nonunion (principal); G40.909 Epilepsy, unspecified, not intractable, without status epilepticus; F41.9 Anxiety disorder, unspecified; F32.A Depression, unspecified; Z79.2 Long term (current) use of antibiotics; Z79.899 Other long term (current) drug therapy; Z88.8 Allergy status to other drugs, medicaments and biological substances; W34.00XD Accidental discharge from unspecified firearms or gun, subsequent encounter
CPT/HCPCS: J1100; J1885; J2250; J2405; J2704; J3490

== ENCOUNTER 2021-12-03 09:56 | Emergency (ER) | payer OTHER, SELFPAY ==
[2021-12-03 11:25] LABS: Bilirubin Negative (Negative); Blood, Urine Negative (Negative); Clarity Clear (Clear); Glucose, Urine (Dipstick) Normal (Negative); Ketone, Urine Negative (Negative); Leukocyte Negative Leu/uL (Negative); Nitrite Negative (Negative); Protein, Urine (Dipstick) Negative (Neg-Trace); Urobilinogen Normal mg/dL (Less than 2)
[2021-12-03 11:38] LABS: Pregnancy Test - Urine (BHCG) Negative (Negative); Pregu Control Background? CLEAR/WHITE (CLR/WHITE); Pregu Control Bar Appear? YES (CONTROL BAR)
[2021-12-03] MEDS ORDERED: cefTRIAXone\\ROCEPHIN 500 MG VIAL ONE (12:04)
[2021-12-03] MEDS ORDERED: Lidocaine 2% PF 5 ML VIAL ONE (12:04)
[2021-12-03 21:20] LABS: Chlamydia by PCR Not Detected (NotDetected); GC by PCR Not Detected (NotDetected)
== END 2021-12-03 12:44 | disposition home or self-care (01) ==
LOC: ERS 09:56
DX: B37.31 Acute candidiasis of vulva and vagina (principal); Z20.2 Contact with and (suspected) exposure to infections with a predominantly sexual mode of transmission
CPT/HCPCS: 81003; 81025; 87480; 87491; 87510; 87591; 87660; 96372; 99283; J0696; J2001

== ENCOUNTER 2022-03-16 11:04 | Outpatient (CLI) | payer MEDICARE, MEDICAID ==
[2022-03-16 12:23] LABS: Hemoglobin 13.2 g/dL (12.0-15.5); Mean Corpuscular HGB CONC 34.4 g/dL (32.0-36.0); Mean Corpuscular Hemoglobin 31.1 pg (27.0-33.0); Mean Corpuscular Volume 90.6 fl (81.6-98.3); Mean Platelet Volume 11.1 fl (7.4-10.4); Platelet Count 288 10x3/uL (150-450); RBC Distribution Width 12.1 % (11.5-14.5); Red Blood Cell (RBC) Count 4.24 10x6/uL (3.90-5.03); White Blood Cell (WBC) Count 6.9 10x3/uL (3.5-10.5)
[2022-03-16 12:38] LABS: Amphetamine Not Detected (NotDetected); Barbiturates Screen Not Detected (NotDetected); Benzodiazepine Screen Not Detected (NotDetected); Cocaine Metabolite Screen Not Detected (NotDetected); Methadone Not Detected (NotDetected); Methamphetamine Not Detected (NotDetected); Opiate Screen Not Detected (NotDetected); Oxycodone Screen Not Detected (NotDetected); Phencyclidine (PCP) Not Detected (NotDetected); THC/Cannabinoid Screen Not Detected (NotDetected); Tricyclic Screen Not Detected (NotDetected)
[2022-03-16 12:55] LABS: BHCG - Serum Negative (NEGATIVE); Pregs Control Background? CLEAR/WHITE (CLR/WHITE); Pregs Control Bar Appear? YES (CONTROL BAR)
[2022-03-16 13:04] LABS: Acetaminophen Less than 10.0 mcg/mL (10.0-30.0); Alcohol Less than 10 mg/dL (Less than 10); Salicylate Less than 8.0 mg/dL (15.0-30.0)
== END 2022-03-16 11:05 | disposition home or self-care (01) ==
LOC: LABBT 11:04
PROVIDERS: ATTEND Oral & Maxillofacial Surgery
DX: Z01.812 Encounter for preprocedural laboratory examination (principal); J98.59 Other diseases of mediastinum, not elsewhere classified; W34.00XD Accidental discharge from unspecified firearms or gun, subsequent encounter
CPT/HCPCS: 80306; 80307; 84703; 85027

== ENCOUNTER 2022-03-30 06:02 | Observation (INO) | payer MEDICARE, MEDICAID ==
[2022-03-28 14:47] VITALS: BMI 25.2
[2022-03-30] MEDS ORDERED: Sodium Chloride 0.9% 100 ML ONE (06:38)
[2022-03-30] MEDS ORDERED: CEFAZOLIN 2 GM VIAL ONE (06:38)
[2022-03-30] MEDS ORDERED: Dexamethasone 4 mg/ml Vial ONE (06:39)
[2022-03-30] MEDS ORDERED: Lidocaine 1% MPF 2 ML VIAL ONE (06:40)
[2022-03-30] MEDS ORDERED: SUGAMMADEX SODIUM 200 MG/2 ML VIAL ONE (06:42)
[2022-03-30] MEDS ORDERED: Fentanyl 250 MCG/5 ML VIAL ONE (06:42)
[2022-03-30] MEDS ORDERED: Bacitracin Zinc Ointment 30 gm TUBE ONE (06:58)
[2022-03-30] MEDS ORDERED: EPINEPHrine 1 MG/ML AMP ONE (06:58)
[2022-03-30] MEDS ORDERED: Lidocaine 1% (PF) 30 ML VIAL ONE (06:58)
[2022-03-30] MEDS ORDERED: Chlorhexidine Gluconate 15 ML UDCUP SSP ONE ×2 (06:58→06:59)
[2022-03-30] MEDS ORDERED: Dexmedetomidine 200 MCG/2 ML VIAL ONE (07:24)
[2022-03-30] MEDS ORDERED: Oxymetazoline HCl 0.05% (30 ML BOT) ONE (07:25)
[2022-03-30] MEDS ORDERED: Midazolam HCl 2 mg/2 ml Vial ONE (07:29)
[2022-03-30] MEDS ORDERED: MINERAL OIL/WHITE PETROLATUM 3.5 GM TUBE ONE (07:45)
[2022-03-30] MEDS ORDERED: Lidocaine 1% PF 5 ML VIAL ONE (07:48)
[2022-03-30] MEDS ORDERED: PROPOFOL 200 MG/20 ML VIAL ONE (07:48)
[2022-03-30] MEDS ORDERED: Dexamethasone 20 MG/5 ML VIAL ONE (07:48)
[2022-03-30] MEDS ORDERED: diphenhydrAMINE 50 MG/ML VIAL ONE (07:48)
[2022-03-30] MEDS ORDERED: Rocuronium Bromide 10 MG/ML (10ML VIAL) ONE (07:48)
[2022-03-30] MEDS ORDERED: PHENYLEPHRINE-NS 100 MCG/ML 10 ML SYRINGE ONE (07:48)
[2022-03-30] MEDS ORDERED: Ondansetron PF 4 MG/2 ML Vial ONE ×2 (07:48)
[2022-03-30 07:59] LABS: SARS-CoV-2 NAA Rapid Test DETECTED (NotDetected)
[2022-03-30] MEDS ORDERED: Neomycin-Polymyxin 1 ML AMP ONE ×3 (09:27→11:16)
[2022-03-30] MEDS ORDERED: HYDROmorphone 2 MG/ML VIAL ONE (10:14)
[2022-03-30] MEDS ORDERED: Fentanyl 100 MCG/2 ML VIAL ONE (12:23)
[2022-03-30] MEDS ORDERED: HYDROmorphone 0.5 MG/0.5 ML SYRINGE ONE (14:05)
[2022-03-30] MEDS: Clindamycin/D5W 900 MG in Premix Bag 1 BAG IVPB SCH ×2 (16:56→22:00)
[2022-03-30] MEDS: Morphine 2 MG/ML VIAL SLOW IVP PRN ×2 (16:56→22:06)
[2022-03-30] MEDS ORDERED: Ibuprofen 800 MG TAB PO SCH (18:00)
[2022-03-30] MEDS: Ibuprofen 100 MG/5 ML UDCUP PO SCH (18:15)
[2022-03-30] MEDS: levETIRAcetam 500 mg/5 ml Oral Solution PO SCH (20:39)
[2022-03-30] MEDS: Hydrocodone-Acetamin 15 ML UDCUP PO PRN (20:39)
[2022-03-30] MEDS: Chlorhexidine Gluconate 15 ML UDCUP SSP SCH (20:39)
[2022-03-30] MEDS ORDERED: levETIRAcetam 500 MG TAB PO SCH (21:00)
[2022-03-31] MEDS: Ibuprofen 100 MG/5 ML UDCUP PO SCH ×4 (00:12→17:11)
[2022-03-31] MEDS: Clindamycin/D5W 900 MG in Premix Bag 1 BAG IVPB SCH ×3 (06:13→23:04)
[2022-03-31] MEDS: Hydrocodone-Acetamin 15 ML UDCUP PO PRN ×3 (06:16→20:32)
[2022-03-31] MEDS ORDERED: VORTIOXETINE 20 MG PO SCH (09:00)
[2022-03-31] MEDS: Chlorhexidine Gluconate 15 ML UDCUP SSP SCH ×2 (11:04→20:33)
[2022-03-31] MEDS: levETIRAcetam 500 mg/5 ml Oral Solution PO SCH ×2 (11:04→20:32)
[2022-03-31] MEDS: Morphine 2 MG/ML VIAL SLOW IVP PRN ×2 (14:48→23:03)
[2022-04-01] MEDS: Ibuprofen 100 MG/5 ML UDCUP PO SCH ×2 (00:49→05:37)
[2022-04-01] MEDS: Morphine 2 MG/ML VIAL SLOW IVP PRN (03:06)
[2022-04-01] MEDS: Clindamycin/D5W 900 MG in Premix Bag 1 BAG IVPB SCH (05:36)
[2022-04-01] MEDS: Hydrocodone-Acetamin 15 ML UDCUP PO PRN ×2 (05:37→09:49)
[2022-04-01] MEDS: Chlorhexidine Gluconate 15 ML UDCUP SSP SCH (09:49)
[2022-04-01] MEDS: levETIRAcetam 500 mg/5 ml Oral Solution PO SCH (09:50)
[2022-04-01 12:45] VITALS: BP 108/72; TEMP 98.2
== END 2022-04-01 12:54 | disposition home or self-care (01) ==
LOC: SDC 06:02 → SJJU 12:49
PROVIDERS: ADMIT Dentist Oral and Maxillofacial Surgery; ATTEND Dentist Oral and Maxillofacial Surgery
PROC: 0NSV04Z Reposition Left Mandible with Internal Fixation Device, Open Approach (ICD-10-PCS; principal; 2022-03-30)
PROC: 0NUV0KZ Supplement Left Mandible with Nonautologous Tissue Substitute, Open Approach (ICD-10-PCS; 2022-03-30)
DX: S02.602K Fracture of unspecified part of body of left mandible, subsequent encounter for fracture with nonunion (principal); U07.1 COVID-19; Z79.899 Other long term (current) drug therapy; Z88.8 Allergy status to other drugs, medicaments and biological substances; W34.00XD Accidental discharge from unspecified firearms or gun, subsequent encounter
CPT/HCPCS: 21215; 21462; 96374; 96375; 96376 ×3; C1713 ×6; C1776; G0378 ×3; U0002; J0171; J1100; J1170; J1200; J2001; J2250; J2272; J2405; J2704; J3010; J3490